=== PATIENT | female | born 1950 | race American Indian/Alaskan Native ===

== ENCOUNTER 2016-12-29 17:11 | Emergency (ER) | payer MEDICARE ==
[2016-12-29 18:22] LABS: Urine Drugs of Abuse Note Disclamer
[2016-12-29 18:36] LABS: Bacteria,Urine 1+ /HPF (Negative); Bilirubin,Urine NEG (Negative); Blood,Urine NEG (Negative); Ketones,Urine NEG (Negative); Leukocyte Esterase,Urine SM (Negative); Mucus,Urine FEW /HPF; Nitrite,Urine POS (Negative); Urobilinogen,Urine < 2.0 mg/dL (<2.0)
[2016-12-29 19:10] LABS: Basophils % (Auto) 0.6 % (0.0-1.8); Eosinophils % (Auto) 0.6 % (0.0-4.3); Hematocrit 40.2 % (30.3-42.9); Hemoglobin 13.4 gm/dl (10.1-14.3); Mean Corpuscular HGB Conc 33 % (30-34); Mean Corpuscular Hemoglobin 30 pg (28-32); Mean Corpuscular Volume 90 fl (79-97); Platelet Count 279 K/mm3 (140-440); Red Blood Count 4.48 M/mm3 (3.65-5.03); Red Cell Distribution Width 14.6 % (13.2-15.2); White Blood Count 10.8 K/mm3 (4.5-11.0)
[2016-12-29 19:23] LABS: Anion Gap 17 mmol/L; Blood Urea Nitrogen 20 mg/dL (7-17); Calcium 9.4 mg/dL (8.4-10.2); Carbon Dioxide 23 mmol/L (22-30); Chloride 103.9 mmol/L (98-107); Glucose 85 mg/dL (65-100); Sodium 140 mmol/L (137-145)
--- NOTE | 2016-12-29 20:07 | Emergency Department Report ---
HPI - General Chief Complaint: Psych Time Seen by Provider: 12/29/16 19:38 - HPI HPI: This is a 66-year-old Afro-[place] female presents to the emergency department for a mental health evaluation. The patient says that she came because she is "trying to do the right thing." The patient admits to depression and says it is "more than that." The patient says she feels very tired and came here in order to try not to "kill myself." The patient has a history of depression and paranoid schizophrenia. She is usually on psychiatric medications but has not taken them in a few days because she says she is "afraid she might take them all rate" patient get some psychiatric care at a behavioral Center on [place] and saw a nurse practitioner on the . It is unknown whether she explained the magnitude of her depression and/or thoughts at that time. She denies any auditory or visual hallucinations or any homicidal ideations. ED Past Medical Hx - Past Medical History Previous Medical History?: Yes Hx Hypertension: Yes Hx Heart Attack/AMI: No Hx Congestive Heart Failure: No Hx Diabetes: Yes Hx Deep Vein Thrombosis: No Hx Liver Disease: No Hx Renal Disease: Yes (history of renal insufficiency) Hx Arthritis: No Hx Kidney Stones: No Hx Psychiatric Treatment: Yes (depression paranoid schizophrenia) Additional medical history: HIGH CHOLESTEROL - Surgical History Past Surgical History?: Yes Hx Coronary Stent: No Hx Open Heart Surgery: No Hx Pacemaker: No Hx Internal Defibrillator: No Hx Cholecystectomy: Yes Hx Appendectomy: No Hx Breast Surgery: No Additional Surgical History: HYSTERECTOMY. BILATERAL FOOT SURGERY - Social History Smoking Status: Former Smoker Substance Use Type: Alcohol, Prescribed - Medications Home Medications: Home Medications Medication Instructions Recorded Confirmed Last Taken Type Citalopram [Celexa] 20 mg PO DAILY 01/13/14 12/29/16 Unknown History [place]-3 Fatty Acids [[place]-3] 1 tab PO DAILY 01/13/14 12/29/16 Unknown History Rosuvastatin (Nf) [Crestor] 20 mg PO DAILY 01/13/14 12/29/16 Unknown History Furosemide [Lasix] 20 mg PO QDAY #30 tablet 05/14/14 12/29/16 Unknown Rx Gabapentin [Neurontin] 800 mg PO TID #30 05/14/14 12/29/16 Unknown Rx Lisinopril [Zestril TAB] 10 mg PO QDAY #30 tablet 05/14/14 12/29/16 Unknown Rx HYDROcodone/APAP 5-325 [[place] 1 each PO Q6HR PRN #30 tablet 04/21/15 12/29/16 Unknown Rx 5-325 mg TAB] Insulin Glargine,Hum.rec.anlog 15 unit SQ TID 04/21/15 12/29/16 Unknown History [Lantus] Citalopram [Celexa] 20 mg PO DAILY #30 tablet 03/30/16 12/29/16 Unknown Rx Nitrofurantoin [place]/M-Cryst 100 mg PO Q12HR #10 capsule 12/29/16 Unknown Rx [Macrobid CAP] ED Review of Systems ROS: Stated complaint: FEELING TIRED Other details as noted in HPI Comment: All other systems reviewed and negative Constitutional: denies: chills, fever Eyes: denies: eye pain, eye discharge, vision change ENT: denies: ear pain, throat pain Respiratory: denies: cough, shortness of breath, wheezing Cardiovascular: denies: chest pain, palpitations Gastrointestinal: denies: abdominal pain, nausea, diarrhea Genitourinary: denies: urgency, dysuria, discharge Musculoskeletal: denies: back pain, joint swelling, arthralgia Skin: denies: rash, lesions Neurological: denies: headache, weakness, paresthesias Psychiatric: depression, suicidal thoughts. denies: auditory hallucinations, visual hallucinations, homicidal thoughts Physical Exam - Physical Exam Vital Signs: Vital Signs 12/29/16 17:52 Temperature 98.9 F Pulse Rate 66 Respiratory 20 Rate Blood Pressure 164/66 O2 Sat by Pulse 100 Oximetry Physical Exam: GENERAL: The patient is well-developed well-nourished. HEENT: Normocephalic. Atraumatic. Extraocular motions are intact. Patient has moist mucous membranes. Pupils equal reactive to light bilaterally. NECK: Supple. Trachea is midline. CHEST/LUNGS: Clear to auscultation. There is no respiratory distress noted. HEART/CARDIOVASCULAR: Regular. There is no tachycardia. There is no gallop rub or murmur. ABDOMEN: Abdomen is soft, nontender. Patient has normal bowel sounds. There is no abdominal distention. SKIN: Skin is warm and dry. NEURO: The patient is awake, alert, and oriented. The patient is cooperative. The patient has no focal neurologic deficits. The patient has normal speech. MUSCULOSKELETAL: There is no tenderness or deformity. There is no limitation range of motion. There is no evidence of acute injury. PSYCH: Patient appears depressed. Flat affect. ED Course Vital Signs 12/29/16 17:52 Temperature 98.9 F Pulse Rate 66 Respiratory 20 Rate Blood Pressure 164/66 O2 Sat by Pulse 100 Oximetry ED Medical Decision Making - Lab Data Result diagrams: 12/29/16 18:52 12/29/16 18:52 - Medical Decision Making 66-year-old female presents the emergency department with depression and suicidal ideations. It sounds like her plan would be anything that would end her life but she specifically mentions overdosing on her medications and uses as a reason as to why she has not taken her psych meds recently. Otherwise the patient's vital signs are stable. Patient's labs are mostly unremarkable other than a mild urinary tract infection. She will be started on Macrobid. Patient is medically cleared for psychiatric placement. She has been made a 1013 secondary to her significant depression and suicidal ideations. - Differential Diagnosis schizophrenia, bipolar, depression, schizoaffective, substance abuse Critical Care Time: No Critical care attestation.: If time is entered above; I have spent that time in minutes in the direct care of this critically ill patient, excluding procedure time. ED Disposition Clinical Impression: Suicidal ideations Depression Qualifiers: Depression Type: unspecified Qualified Code(s): F32.9 - Major depressive disorder, single episode, unspecified HTN (hypertension) Qualifiers: Hypertension type: essential hypertension Qualified Code(s): I10 - Essential ( primary) hypertension UTI (urinary tract infection) Qualifiers: Urinary tract infection type: acute cystitis Hematuria presence: without hematuria Qualified Code(s): N30.00 - Acute cystitis without hematuria Disposition: DC/TX PSY HOSP/PSY UNIT Is pt being admited?: No Condition: Stable Instructions: Hypertension (ED) Prescriptions: Nitrofurantoin [place]/M-Cryst [Macrobid CAP] 100 mg PO Q12HR #10 capsule Referrals: PRIMARY CARE, [Primary Care Provider] - 3-5 Days Time of Disposition: 20:46
[2016-12-29] MEDS: MACROBID PO SCH (22:00)
[2016-12-30] MEDS ORDERED: celeXA PO SCH (10:00)
[2016-12-30] MEDS ORDERED: ZESTRIL PO SCH (10:00)
[2016-12-30] MEDS: MACROBID PO SCH ×2 (10:02→22:14)
--- NOTE | 2016-12-30 12:27 | Consultation ---
History of Present Illness - Reason for Consult Consult date: 12/30/16 Reason for consult: psychiatric evaluation - Chief Complaint Chief complaint: "I can't take it anymore" 66 year old black female seen for psychiatric evaluation in the emergency department. She reports suicidal ideation with a plan to overdose and does not want to be a burden to her family. She did not carry it out for fear of hurting the family she has left to support her. She discussed the circumstances leading to worsening of depression. She had Multiple losses of relationship with her children and other family members. Primary symptoms are isolation, crying spells , anhedonia, lack of motivation, and hopelessness. She is unsure whether she was diagnosed with bipolar disorder. Previous history of AVH, none currently No history of SA Receives treatment for mental health but is a poor historian No alcohol or drug use reported Mental status exam: Gen. appearance: hospital attire, unable to assess gait, has indwelling cody catheter Orientation: Oriented to person, place, time, situation Psychomotor activity: retarded Involuntary movements: None Speech: Regular rate and rhythm Attitude and behavior: cooperative Mood: Depressed, dysphoric Affect: Congruent Thought process: logical Thought content: suicidal ideation with plan to overdose. No HI. worry Perceptions: no avh Memory: unable to complete immediate/recent/remote memory screening Insight: limited Judgment: limited Intelligence: Appears average Ability to perform ADLs: limited Medications and Allergies Allergies Allergy/AdvReac Type Severity Reaction Status Date / Time No Known Allergies Allergy Unverified 01/13/14 19:32 Home Medications Medication Instructions Recorded Confirmed Last Taken Type Citalopram [Celexa] 20 mg PO DAILY 01/13/14 12/29/16 Unknown History [place]-3 Fatty Acids [[place]-3] 1 tab PO DAILY 01/13/14 12/29/16 Unknown History Rosuvastatin (Nf) [Crestor] 20 mg PO DAILY 01/13/14 12/29/16 Unknown History Furosemide [Lasix] 20 mg PO QDAY #30 tablet 05/14/14 12/29/16 Unknown Rx Gabapentin [Neurontin] 800 mg PO TID #30 05/14/14 12/29/16 Unknown Rx Lisinopril [Zestril TAB] 10 mg PO QDAY #30 tablet 05/14/14 12/29/16 Unknown Rx HYDROcodone/APAP 5-325 [[place] 1 each PO Q6HR PRN #30 tablet 04/21/15 12/29/16 Unknown Rx 5-325 mg TAB] Insulin Glargine,Hum.rec.anlog 15 unit SQ TID 04/21/15 12/29/16 Unknown History [Lantus] Citalopram [Celexa] 20 mg PO DAILY #30 tablet 03/30/16 12/29/16 Unknown Rx Nitrofurantoin [place]/M-Cryst 100 mg PO Q12HR #10 capsule 12/29/16 Unknown Rx [Macrobid CAP] Active Meds: Active Medications Citalopram Hydrobromide (Celexa) 20 mg PO DAILY [facility] Last Admin: 12/30/16 10:01 Dose: 20 mg Lisinopril (Zestril) 10 mg PO QDAY [facility] Last Admin: 12/30/16 10:02 Dose: 10 mg Nitrofurantoin Macrocrystals (Macrobid) 100 mg PO BID [facility] Last Admin: 12/30/16 10:02 Dose: 100 mg Mental Status Exam - Vital signs Last Vital Signs Temp 98.4 F 12/30/16 08:25 Pulse 64 12/30/16 10:02 Resp 16 12/30/16 08:25 BP 158/82 12/30/16 10:02 Pulse Ox 100 12/30/16 08:25 Results Result Diagrams: 12/29/16 18:52 12/29/16 18:52 Abnormal lab results 12/29/16 12/29/16 12/29/16 Range/Units 18:01 18:52 18:52 Seg Neutrophils % 72.2 H (40.0-70.0) % Seg Neutrophils # 7.8 H (1.8-7.7) K/mm3 BUN 20 H (7-17) mg/dL Urine WBC (Auto) 25.0 H (0.0-6.0) /HPF All other labs normal. Assessment and Plan Assessment and plan: Impression: 66 year old with history of depressive episodes. Family stressors and chronic medical problems are exacerbating her symptoms. MDD, recurrent, severe, without psychotic features r/o bipolar Plan: 1013 and transfer to inpatient psychiatric when medically cleared. Restart celexa 20mg daily for depressive symptoms - Psychiatric problem (1) MDD (major depressive disorder), recurrent episode Current Visit: Yes Status: Acute Qualifiers: Major depression episode severity: M Psychotic features: P
[2016-12-31 00:49] VITALS: BP 156/73
== END 2016-12-31 06:12 ==
LOC: ED 17:11 → EEVIPCON 17:11 → ED 12-31 06:12
DX: R45.851 Suicidal ideations (principal); F32.9 Major depressive disorder, single episode, unspecified; I10 Essential (primary) hypertension; N30.00 Acute cystitis without hematuria; E11.9 Type 2 diabetes mellitus without complications; E78.00 Pure hypercholesterolemia, unspecified; F20.0 Paranoid schizophrenia; Z90.49 Acquired absence of other specified parts of digestive tract; Z90.710 Acquired absence of both cervix and uterus; Z87.891 Personal history of nicotine dependence; Z79.4 Long term (current) use of insulin
CPT/HCPCS: 36415; 80048; 80307; 81001; 82962; 85025; 99285; G0480; 80320

== ENCOUNTER 2017-05-03 09:23 | Emergency (ER) | payer MEDICARE ==
--- NOTE | 2017-05-03 10:06 | Emergency Department Report ---
HPI - General Chief Complaint: Urogenital-Female Time Seen by Provider: 05/03/17 10:00 - HPI HPI: PATIENT STATES THAT FOR THE PAST THREE DAYS SHE FEELS LIKE SHE IS LOSING HER MIND, C/O BURNING INSIDE, FEELING LIKE SOMETHING IS CRAWLING IN HER SKIN, FEELING LIKE SHE IS GOING CRAZY. PATIENT ALSO STATES THAT SHE IS HEARING VOICES AND SEEING THINGS THAT ARE NOT THERE. ED Past Medical Hx - Past Medical History Previous Medical History?: Yes Hx Hypertension: Yes Hx Heart Attack/AMI: No Hx Congestive Heart Failure: No Hx Diabetes: Yes Hx Deep Vein Thrombosis: No Hx Liver Disease: No Hx Renal Disease: Yes (history of renal insufficiency) Hx Arthritis: No Hx Kidney Stones: No Hx Psychiatric Treatment: Yes (depression paranoid schizophrenia) Additional medical history: HIGH CHOLESTEROL - Surgical History Past Surgical History?: Yes Hx Coronary Stent: No Hx Open Heart Surgery: No Hx Pacemaker: No Hx Internal Defibrillator: No Hx Cholecystectomy: Yes Hx Appendectomy: No Hx Breast Surgery: No Additional Surgical History: HYSTERECTOMY. BILATERAL FOOT SURGERY - Social History Smoking Status: Never Smoker Substance Use Type: None - Medications Home Medications: Home Medications Medication Instructions Recorded Confirmed Last Taken Type [place]-3 Fatty Acids [[place]-3] 1 tab PO DAILY 01/13/14 05/03/17 Unknown History Rosuvastatin (Nf) [Crestor] 20 mg PO DAILY 01/13/14 05/03/17 Unknown History Furosemide [Lasix] 20 mg PO QDAY #30 tablet 05/14/14 05/03/17 Unknown Rx Gabapentin [Neurontin] 800 mg PO TID #30 05/14/14 05/03/17 Unknown Rx Lisinopril [Zestril TAB] 10 mg PO QDAY #30 tablet 05/14/14 05/03/17 Unknown Rx Insulin Glargine,Hum.rec.anlog 15 unit SQ TID 04/21/15 05/03/17 Unknown History [Lantus] Citalopram [Celexa] 20 mg PO DAILY #30 tablet 03/30/16 05/03/17 Unknown Rx Nitrofurantoin [place]/M-Cryst 100 mg PO Q12HR #10 capsule 12/29/16 05/03/17 Unknown Rx [Macrobid CAP] Cephalexin [Keflex] 500 mg PO Q12HR #14 cap 08/18/17 Unknown Rx Fluconazole [Diflucan TAB] 150 mg PO ONCE #2 tablet 05/03/17 Unknown Rx ED Review of Systems ROS: Stated complaint: BODY FEELS LIKE IT ON FIRE Other details as noted in HPI Comment: All other systems reviewed and negative Gastrointestinal: as per HPI Psychiatric: auditory hallucinations, visual hallucinations Physical Exam - Physical Exam Vital Signs: Vital Signs 05/03/17 09:36 Temperature 98.7 F Pulse Rate 60 Blood Pressure 159/69 O2 Sat by Pulse 100 Oximetry Physical Exam: gen: alert and oriented x3, heent: perrla, eomi cv: rrr, nl s1, s2 lungs: cta bila abd: s,nt,nd, pos bs ext: no edema gu: pt refused neuro: no deficits psych: DEPRESSED MOOD, ANXIOUS, skin: normal turgor ED Course Vital Signs 05/03/17 09:36 Temperature 98.7 F Pulse Rate 60 Blood Pressure 159/69 O2 Sat by Pulse 100 Oximetry - Reevaluation(s) Reevaluation #1: 05/03/17 15:10 PATIENT WAS SEEN BY PSYCHIATRY AND D/C WAS RECOMMENDED. ED Medical Decision Making - Lab Data Result diagrams: 05/03/17 09:58 05/03/17 09:55 Critical care attestation.: If time is entered above; I have spent that time in minutes in the direct care of this critically ill patient, excluding procedure time. ED Disposition Clinical Impression: Candidiasis of genitalia in female, Anxiety UTI (urinary tract infection) Qualifiers: Indwelling urinary catheter type: unspecified Encounter type: initial encounter Disposition: DC- TO HOME OR SELFCARE Is pt being admited?: No Does the pt Need Aspirin: No Condition: Stable Prescriptions: Cephalexin [Keflex] 500 mg PO Q12HR #14 cap Fluconazole [Diflucan TAB] 150 mg PO ONCE #2 tablet Referrals: ANTONIO OROZCO MD [Primary Care Provider] - 3-5 Days
[2017-05-03 10:07] LABS: Bacteria,Urine 1+ /HPF (Negative); Bilirubin,Urine NEG (Negative); Blood,Urine NEG (Negative); Ketones,Urine NEG (Negative); Leukocyte Esterase,Urine MOD (Negative); Nitrite,Urine NEG (Negative); Protein,Urine <15 mg/dL mg/dL (Negative); Urobilinogen,Urine < 2.0 mg/dL (<2.0)
[2017-05-03 10:20] LABS: Basophils % (Auto) 0.6 % (0.0-1.8); Eosinophils % (Auto) 1.3 % (0.0-4.3); Hematocrit 33.8 % (30.3-42.9); Hemoglobin 11.5 gm/dl (10.1-14.3); Mean Corpuscular HGB Conc 34 % (30-34); Mean Corpuscular Hemoglobin 31 pg (28-32); Mean Corpuscular Volume 91 fl (79-97); Platelet Count 245 K/mm3 (140-440); Red Blood Count 3.71 M/mm3 (3.65-5.03); Red Cell Distribution Width 14.1 % (13.2-15.2); White Blood Count 8.5 K/mm3 (4.5-11.0)
[2017-05-03 10:35] LABS: Albumin 4.1 g/dL (3.9-5); BUN/Creatinine Ratio 13.33; Bilirubin,Total 0.3 mg/dL (0.1-1.2); Calcium 8.8 mg/dL (8.4-10.2); Total Protein 7.4 g/dL (6.3-8.2)
[2017-05-03 10:36] LABS: Albumin/Globulin Ratio 1.2 %; Chloride 103.6 mmol/L (98-107); Potassium 4.2 mmol/L (3.6-5.0)
--- NOTE | 2017-05-03 10:38 | Cat Scan Report ---
CT HEAD WITHOUT CONTRAST INDICATION: Altered mental status. COMPARISON: None similar. FINDINGS: Noncontrast head CT demonstrates normal ventricles and sulci without acute or recent infarct, hemorrhage, mass effect or midline shift. No abnormal extra-axial fluid collections. Slight periventricular hypodensities. Posterior fossa structures and basilar cisterns appear within normal limits. Slight nasal septal deviation. Clear paranasal sinuses and mastoid air cells. Mild atherosclerotic ICA calcifications. Intact calvarium. Normal overlying scalp soft tissues. Few radiopaque dental material anteriorly and numerous missing teeth incidentally noted. CONCLUSION: No acute intracranial CT abnormality, as described. Thank you for the opportunity to participate in this patient's care.
[2017-05-03] MEDS ORDERED: ATIVAN ONE (12:31)
[2017-05-03] MEDS ORDERED: ATIVAN PO ONE (12:35)
[2017-05-03 16:35] VITALS: BP 153/62
== END 2017-05-03 16:34 | disposition home or self-care (01) ==
LOC: ED 09:23
DX: B37.9 Candidiasis, unspecified (principal); N39.0 Urinary tract infection, site not specified; I10 Essential (primary) hypertension; E11.9 Type 2 diabetes mellitus without complications; F20.9 Schizophrenia, unspecified; E78.00 Pure hypercholesterolemia, unspecified; Z79.4 Long term (current) use of insulin
CPT/HCPCS: 36415; 70450; 80053; 81001; 83690; 85025; 99284; G0480; 80320

== ENCOUNTER 2017-06-03 09:28 | Emergency (ER) | payer MEDICARE ==
[2017-06-03 10:22] LABS: Basophils % (Auto) 0.5 % (0.0-1.8); Eosinophils % (Auto) 0.3 % (0.0-4.3); Hematocrit 35.4 % (30.3-42.9); Hemoglobin 11.9 gm/dl (10.1-14.3); Mean Corpuscular HGB Conc 34 % (30-34); Mean Corpuscular Hemoglobin 30 pg (28-32); Mean Corpuscular Volume 90 fl (79-97); Platelet Count 244 K/mm3 (140-440); Red Blood Count 3.92 M/mm3 (3.65-5.03); Red Cell Distribution Width 14.1 % (13.2-15.2); White Blood Count 6.8 K/mm3 (4.5-11.0)
--- NOTE | 2017-06-03 10:26 | Emergency Department Report ---
HPI - General Chief Complaint: Overdose Time Seen by Provider: 06/03/17 10:16 - HPI HPI: Room 1 The patient is 67-year-old female presenting with chief complaint suicidal ideation. The patient states last night and sometime this morning before sunrise she took a handful of Aleve and Advil PM. Patient is to suicidal ideation. Patient denies any other coingestants. The patient states she just does not want to be here. Location: Mental state Duration: [see above] Quality: Suicidal Severity: Severe Modifying factors: [see above] Context: [see above] Mode of transportation: [not driving] ED Past Medical Hx - Past Medical History Previous Medical History?: Yes Hx Hypertension: Yes Hx Diabetes: Yes Hx Renal Disease: Yes (history of renal insufficiency) Hx Psychiatric Treatment: Yes (depression paranoid schizophrenia) Additional medical history: HIGH CHOLESTEROL - Surgical History Hx Cholecystectomy: Yes Additional Surgical History: HYSTERECTOMY. BILATERAL FOOT SURGERY - Family History Family history: no significant - Social History Smoking Status: Never Smoker Substance Use Type: None - Medications Home Medications: Home Medications Medication Instructions Recorded Confirmed Last Taken Type [place]-3 Fatty Acids [[place]-3] 1 tab PO DAILY 01/13/14 05/03/17 Unknown History Rosuvastatin (Nf) [Crestor] 20 mg PO DAILY 01/13/14 05/03/17 Unknown History Furosemide [Lasix] 20 mg PO QDAY #30 tablet 05/14/14 05/03/17 Unknown Rx Gabapentin [Neurontin] 800 mg PO TID #30 05/14/14 05/03/17 Unknown Rx Lisinopril [Zestril TAB] 10 mg PO QDAY #30 tablet 05/14/14 05/03/17 Unknown Rx Insulin Glargine,Hum.rec.anlog 15 unit SQ TID 04/21/15 05/03/17 Unknown History [Lantus] Citalopram [Celexa] 20 mg PO DAILY #30 tablet 03/30/16 05/03/17 Unknown Rx Nitrofurantoin [place]/M-Cryst 100 mg PO Q12HR #10 capsule 12/29/16 05/03/17 Unknown Rx [Macrobid CAP] Cephalexin [Keflex] 500 mg PO Q12HR #14 cap 05/03/17 Unknown Rx Fluconazole [Diflucan TAB] 150 mg PO ONCE #2 tablet 05/03/17 Unknown Rx ED Review of Systems ROS: Stated complaint: SUICIDE ATTEMPT Other details as noted in HPI Comment: All other systems reviewed and negative Constitutional: denies: chills, fever Eyes: denies: eye pain, eye discharge, vision change ENT: denies: ear pain, throat pain Respiratory: denies: cough, shortness of breath, wheezing Cardiovascular: denies: chest pain, palpitations Endocrine: no symptoms reported Gastrointestinal: denies: abdominal pain, nausea, diarrhea Genitourinary: denies: urgency, dysuria, discharge Musculoskeletal: denies: back pain, joint swelling, arthralgia Skin: denies: rash, lesions Neurological: denies: headache, weakness, paresthesias Psychiatric: suicidal thoughts Hematological/Lymphatic: denies: easy bleeding, easy bruising Physical Exam - Physical Exam Vital Signs: Vital Signs 06/03/17 06/03/17 06/03/17 09:36 10:07 10:08 Pulse Rate 61 56 L 56 L Respiratory 17 19 19 Rate Blood Pressure 174/78 O2 Sat by Pulse 100 100 100 Oximetry 06/03/17 06/03/17 06/03/17 10:09 10:11 10:13 Pulse Rate 56 L 56 L 56 L Respiratory 21 18 19 Rate Blood Pressure O2 Sat by Pulse 100 100 100 Oximetry 06/03/17 10:15 Pulse Rate 54 L Respiratory 18 Rate Blood Pressure 164/68 O2 Sat by Pulse 100 Oximetry Physical Exam: GENERAL: The patient is well-developed well-nourished female lying on stretcher not appearing to be in acute distress. [] HEENT: Normocephalic. Atraumatic. Extraocular motions are intact. Patient has moist mucous membranes. NECK: Supple. Trachea midline CHEST/LUNGS: Clear to auscultation. There is no respiratory distress noted. HEART/CARDIOVASCULAR: Regular. There is no tachycardia. There is no gallop rub or murmur. ABDOMEN: Abdomen is soft, nontender. Patient has normal bowel sounds. There is no abdominal distention. SKIN: There is no rash. There is no edema. There is no diaphoresis. NEURO: The patient is awake, alert, and oriented. The patient is cooperative. The patient has normal speech MUSCULOSKELETAL: There is no evidence of acute injury. ED Course Vital Signs 06/03/17 06/03/17 06/03/17 09:36 10:07 10:08 Pulse Rate 61 56 L 56 L Respiratory 17 19 19 Rate Blood Pressure 174/78 O2 Sat by Pulse 100 100 100 Oximetry 06/03/17 06/03/17 06/03/17 10:09 10:11 10:13 Pulse Rate 56 L 56 L 56 L Respiratory 21 18 19 Rate Blood Pressure O2 Sat by Pulse 100 100 100 Oximetry 06/03/17 10:15 Pulse Rate 54 L Respiratory 18 Rate Blood Pressure 164/68 O2 Sat by Pulse 100 Oximetry - Consultations Consultation #1: 06/03/17 10:25 Poison control called 06/03/17 10:33 Case discussed with Christopher with poison control. Recommend symptomatic and supportive care. States with diphenhydramine may expect elevated heart rate, elevated blood pressure, agitation or drowsiness. States agitation may be treated with benzodiazepines as needed. Newly and Advil may cause GI upset. Recommends observing at least 6 hours. 06/03/17 12:48 ED Medical Decision Making - Lab Data Result diagrams: 06/03/17 10:09 06/03/17 10:09 Laboratory Tests 06/03/17 06/03/17 06/03/17 10:09 10:09 10:09 WBC RBC Hgb Hct MCV MCH MCHC RDW Plt Count Lymph % (Auto) [place] % (Auto) Eos % (Auto) Baso % (Auto) Lymph # [place] # Eos # Baso # Seg Neutrophils % Seg Neutrophils # PT INR APTT Sodium 140 Potassium 3.6 Chloride 103.4 Carbon Dioxide 24 Anion Gap 16 BUN 12 Creatinine 0.9 Estimated GFR > 60 BUN/Creatinine Ratio 13.33 Glucose 137 H Calcium 8.7 Total Bilirubin Direct Bilirubin Indirect Bilirubin AST ALT Alkaline Phosphatase Total Protein Albumin Albumin/Globulin Ratio Salicylates Acetaminophen < 15.0 Plasma/Serum Alcohol < 0.01 06/03/17 06/03/17 06/03/17 10:09 10:09 10:09 WBC 6.8 RBC 3.92 Hgb 11.9 Hct 35.4 MCV 90 MCH 30 MCHC 34 RDW 14.1 Plt Count 244 Lymph % (Auto) 17.1 [place] % (Auto) 3.4 Eos % (Auto) 0.3 Baso % (Auto) 0.5 Lymph # 1.2 [place] # 0.2 Eos # 0.0 Baso # 0.0 Seg Neutrophils % 78.7 H Seg Neutrophils # 5.4 PT 13.3 INR 0.96 APTT 27.6 Sodium Potassium Chloride Carbon Dioxide Anion Gap BUN Creatinine Estimated GFR BUN/Creatinine Ratio Glucose Calcium Total Bilirubin Direct Bilirubin Indirect Bilirubin AST ALT Alkaline Phosphatase Total Protein Albumin Albumin/Globulin Ratio Salicylates < 0.3 L Acetaminophen Plasma/Serum Alcohol 06/03/17 10:09 WBC RBC Hgb Hct MCV MCH MCHC RDW Plt Count Lymph % (Auto) [place] % (Auto) Eos % (Auto) Baso % (Auto) Lymph # [place] # Eos # Baso # Seg Neutrophils % Seg Neutrophils # PT INR APTT Sodium Potassium Chloride Carbon Dioxide Anion Gap BUN Creatinine Estimated GFR BUN/Creatinine Ratio Glucose Calcium Total Bilirubin 0.20 Direct Bilirubin < 0.2 Indirect Bilirubin 0.0 AST 16 ALT 9 Alkaline Phosphatase 64 Total Protein 7.2 Albumin 4.0 Albumin/Globulin Ratio 1.3 Salicylates Acetaminophen Plasma/Serum Alcohol - EKG Data -: EKG Interpreted by Id EKG shows normal: sinus rhythm Rate: bradycardia (57 bpm) - EKG Data When compared to previous EKG there are: previous EKG unavailable - Differential Diagnosis suicidal ideation, polysubstance overdose Critical care attestation.: If time is entered above; I have spent that time in minutes in the direct care of this critically ill patient, excluding procedure time. ED Disposition Clinical Impression: Suicidal ideation, Intentional drug overdose Disposition: DC/TX-65 PSY HOSP/PSY UNIT Is pt being admited?: No Does the pt Need Aspirin: No Condition: Serious Referrals: PRIMARY CARE, [Primary Care Provider] - 3-5 Days Time of Disposition: 14:05 (awaiting acceptance)
[2017-06-03 10:34] LABS: INR 0.96 (0.87-1.13)
[2017-06-03 10:35] LABS: Partial Thromboplastin Time 27.6 Sec. (24.2-36.6)
[2017-06-03 11:16] LABS: Anion Gap 16 mmol/L; BUN/Creatinine Ratio 13.33; Blood Urea Nitrogen 12 mg/dL (7-17); Calcium 8.7 mg/dL (8.4-10.2); Carbon Dioxide 24 mmol/L (22-30); Chloride 103.4 mmol/L (98-107); Glucose 137 mg/dL (65-100); Potassium 3.6 mmol/L (3.6-5.0); Sodium 140 mmol/L (137-145)
[2017-06-03 11:42] LABS: Alanine Aminotransferase 9 units/L (7-56); Albumin/Globulin Ratio 1.3 %; Alkaline Phosphatase 64 units/L (35-129); Total Protein 7.2 g/dL (6.3-8.2)
[2017-06-03 11:43] LABS: Bilirubin,Direct < 0.2 mg/dL (0-0.2)
[2017-06-04 05:37] LABS: Urine Drugs of Abuse Note Disclamer
[2017-06-04 05:51] LABS: Bacteria,Urine 2+ /HPF (Negative); Bilirubin,Urine NEG (Negative); Blood,Urine NEG (Negative); Ketones,Urine TR mg/dL (Negative); Leukocyte Esterase,Urine LG (Negative); Mucus,Urine 1+ /HPF; Nitrite,Urine POS (Negative); Urobilinogen,Urine < 2.0 mg/dL (<2.0)
[2017-06-04] MEDS ORDERED: LASIX PO SCH (07:00)
[2017-06-04] MEDS ORDERED: ZESTRIL PO SCH (07:00)
[2017-06-04] MEDS: NEURONTIN PO SCH ×3 (09:09→20:21)
[2017-06-04] MEDS: NOVOLOG SUB-Q SCH ×3 (09:09→19:47)
[2017-06-04] MEDS: LEVEMIR SUB-Q SCH (22:16)
[2017-06-05] MEDS: NOVOLOG SUB-Q SCH ×3 (08:50→19:01)
[2017-06-05] MEDS: NEURONTIN PO SCH ×3 (08:58→21:17)
[2017-06-05] MEDS: LEVEMIR SUB-Q SCH (22:00)
[2017-06-06] MEDS: NOVOLOG SUB-Q SCH ×3 (08:06→19:37)
[2017-06-06] MEDS: NEURONTIN PO SCH ×3 (08:29→20:11)
--- NOTE | 2017-06-06 12:34 | Consultation ---
History of Present Illness - Reason for Consult Consult date: 06/06/17 Reason for consult: Mental Health Evaluation Requesting physician: KRISTOPHER AMOS - Chief Complaint Chief complaint: "What is the problem" - History of Present Psychiatric Illness The patient is 67-year-old female presenting with chief complaint suicidal ideation. The patient states last night and sometime this morning before sunrise she took a handful of Aleve and Advil PM (overdose). Today patient is calm during the assessment. She stated that she didn't take any pills prior to her admission to [facility] to kill herself. She stated that her issue is her ability to "pee" and move her bowels. Patient currently has a cody cath. She could not tell me why she has a cody, but stated that she has a implant in her "brain" that allows her to use the "bathroom." Per collateral from her daughter Tasha Gaston, her mother did not take any pills to try to kill herself prior to her admission to [facility]. She stated that her mother lives alone and need assistance at home (nursing care). So she decided to call EMS and tell them she took pills to get some help (patient never overdosed). Her daughter stated that her mom was approved for nursing/home care. She stated that her mom has a implant in her back not in her brain to stimulate her bowels and bladder. She stated that her mom was dx with early on stage dementia earlier this year. She denies a mental health dx for her mother. The patient was able to ID the current and past [place] president. She was able to tell me and recall 1/3 numbers (3, 8, 19 ) within 5 mins. She denies SI/HI's and AVH's. She denies a poor appetite and sleep disturbances. She denies recreational drug use and alcohol consumption ( etoh). The patient stated getting help around her house can be stressful. Medications and Allergies Allergies Allergy/AdvReac Type Severity Reaction Status Date / Time Iodinated Contrast Media - Allergy Anaphylaxis Verified 06/03/17 09:48 IV Dye Home Medications Medication Instructions Recorded Confirmed Last Taken Type [place]-3 Fatty Acids [[place]-3] 1 tab PO DAILY 01/13/14 06/03/17 Unknown History Rosuvastatin (Nf) [Crestor] 20 mg PO DAILY 01/13/14 06/03/17 Unknown History Furosemide [Lasix] 20 mg PO QDAY #30 tablet 05/14/14 06/03/17 Unknown Rx Gabapentin [Neurontin] 800 mg PO TID #30 05/14/14 06/03/17 Unknown Rx Lisinopril [Zestril TAB] 10 mg PO QDAY #30 tablet 05/14/14 06/03/17 Unknown Rx Insulin Glargine,Hum.rec.anlog 12 unit SQ QHS 04/21/15 06/03/17 Unknown History [Lantus] Citalopram [Celexa] 20 mg PO DAILY #30 tablet 03/30/16 06/03/17 Unknown Rx Nitrofurantoin [place]/M-Cryst 100 mg PO Q12HR #10 capsule 12/29/16 06/03/17 Unknown Rx [Macrobid CAP] Fluconazole [Diflucan TAB] 150 mg PO ONCE #2 tablet 05/03/17 06/03/17 Unknown Rx Insulin Lispro [HumaLOG VIAL] 0 units SQ AC 06/03/17 06/03/17 Unknown History Active Meds: Active Medications Atorvastatin Calcium (Lipitor) 40 mg PO QHS [facility] Last Admin: 06/05/17 22:00 Dose: 40 mg Furosemide (Lasix) 20 mg PO ONCE ERIBERTO Gabapentin (Neurontin) 300 mg PO TID [facility] Last Admin: 06/06/17 08:29 Dose: 300 mg Insulin Aspart (Novolog) 4 units SUB-Q TIDAC [facility] Last Admin: 06/06/17 08:06 Dose: Not Given Insulin Detemir (Levemir) 12 units SUB-Q QHS [facility] Last Admin: 06/05/17 22:00 Dose: 12 units Lisinopril (Zestril) 10 mg PO ONCE [facility] Past psychiatric history - Past Medical History Past Medical History: hypertension, other (renal insufficiency) Past Surgical History: cholecystectomy - past Psychiatric treatment and history Psych: Schizophrenia psychiatric treatment history: Per ER note, patient has hx of schizophrenia. Mental Status Exam - Vital signs Last Vital Signs Temp 97.6 F 06/05/17 20:10 Pulse 57 L 06/05/17 20:10 Resp 16 06/05/17 20:10 BP 140/57 06/05/17 20:10 Pulse Ox 100 06/05/17 20:10 - Exam Narrative exam: ROS: (-) psychosis MSE: Appearance: calm, cooperative Behavior: regular eye contact Speech: regular rate and tone Mood: "I'm well" Affect: agitated Thought Process: circumstantial Thought Content: denies SI/HI's and AVH's Motor Activity: sitting up in bed Cognition: A/O x3 Insight: variable Judgment: variable Results Result Diagrams: 06/03/17 10:09 06/03/17 10:09 Abnormal lab results 06/05/17 Range/Units 19:09 POC Glucose 106 H (70-105) All other labs normal. Assessment and Plan Assessment and plan: Impression: Historical Dx: Early on stage dementia. Acute Stress Reaction. Today patient is calm during the assessment. Patient no threat to self. Recommendation/Plan: Rescind 1013. Patient can be picked up by her daughter. Per the patient's daughter, nursing/home care has been arranged.
--- NOTE | 2017-06-06 19:13 | Emergency Department Report ---
Blank Doc - Documentation Documentation: Patient has been a ED greater than 80 hours. After evaluation were mental health patient was deemed safe for discharge. 1013 will be rescinded as recommended. No suicidal homicidal ideation reported it this time. Impression and plan imported from a mental health refrigerator crater chart below Assessment and plan: Impression: Historical Dx: Early on stage dementia. Acute Stress Reaction. Today patient is calm during the assessment. Patient no threat to self. Recommendation/Plan: Rescind 1013. Patient can be picked up by her daughter. Per the patient's daughter, nursing/home care has been arranged.
[2017-06-06] MEDS ORDERED: MACROBID PO ONE (19:15)
[2017-06-07 00:17] VITALS: BP 146/70
== END 2017-06-06 20:15 | disposition home or self-care (01) ==
LOC: ED 09:28 → EEVIPCON 09:28 → ED 06-06 20:15
DX: T65.92XA Toxic effect of unspecified substance, intentional self-harm, initial encounter (principal); Y92.9 Unspecified place or not applicable; I10 Essential (primary) hypertension; E11.9 Type 2 diabetes mellitus without complications
CPT/HCPCS: 36415; 80048; 80074; 80307; 81001; 82962; 85025; 85610; 85730; 93005; 93010; 96372; 99285; A9270; G0480; 80320; J1815; J1818

== ENCOUNTER 2017-06-17 07:37 | Emergency (ER) | payer MEDICARE ==
[2017-06-17] MEDS ORDERED: TYLENOL PO ONE (08:40)
[2017-06-17] MEDS ORDERED: CATAPRES PO ONE (10:39)
[2017-06-17] MEDS ORDERED: MORPHINE IM ONE (10:39)
[2017-06-17] MEDS ORDERED: ZOFRAN IM ONE (10:39)
--- NOTE | 2017-06-17 10:45 | Emergency Department Report ---
HPI - General Chief Complaint: Pain General Time Seen by Provider: 06/17/17 10:27 - HPI HPI: Room 6 The patient is a 67-year-old female presented with a chief complaint of diarrhea. The patient states for the past 3 days she has had diarrhea and abdominal cramping. Patient denies nausea/vomiting, dysuria, hematuria or fever. The patient states this morning she fell in the bathroom striking the right side of her neck. Patient denies loss of consciousness. Patient states she was placed on antibiotics last week for UTI Location: Abdomen, neck/head Duration: 3 Days Quality: Pain, cramping Severity: Moderate Modifying factors: Unknown Context: see above Mode of transportation: not driving ED Past Medical Hx - Past Medical History Hx Hypertension: Yes Hx Diabetes: Yes Hx Renal Disease: Yes (history of renal insufficiency) Hx Psychiatric Treatment: Yes (depression paranoid schizophrenia) Additional medical history: HIGH CHOLESTEROL, neuropathy - Surgical History Hx Cholecystectomy: Yes Additional Surgical History: HYSTERECTOMY. BILATERAL FOOT SURGERY - Family History Family history: no significant - Social History Smoking Status: Never Smoker Substance Use Type: Alcohol (rarely) - Medications Home Medications: Home Medications Medication Instructions Recorded Confirmed Last Taken Type [place]-3 Fatty Acids [[place]-3] 1 tab PO DAILY 01/13/14 06/03/17 Unknown History Rosuvastatin (Nf) [Crestor] 20 mg PO DAILY 01/13/14 06/03/17 Unknown History Furosemide [Lasix] 20 mg PO QDAY #30 tablet 05/14/14 06/03/17 Unknown Rx Gabapentin [Neurontin] 800 mg PO TID #30 05/14/14 06/03/17 Unknown Rx Lisinopril [Zestril TAB] 10 mg PO QDAY #30 tablet 05/14/14 06/03/17 Unknown Rx Insulin Glargine,Hum.rec.anlog 12 unit SQ QHS 04/21/15 06/03/17 Unknown History [Lantus] Citalopram [Celexa] 20 mg PO DAILY #30 tablet 03/30/16 06/03/17 Unknown Rx Nitrofurantoin [place]/M-Cryst 100 mg PO Q12HR #10 capsule 12/29/16 06/03/17 Unknown Rx [Macrobid CAP] Fluconazole [Diflucan TAB] 150 mg PO ONCE #2 tablet 05/03/17 06/03/17 Unknown Rx Insulin Lispro [HumaLOG VIAL] 0 units SQ AC 06/03/17 06/03/17 Unknown History Nitrofurantoin [place]/M-Cryst 100 mg PO Q12HR #14 capsule 06/06/17 Unknown Rx [Macrobid CAP] metroNIDAZOLE [Flagyl] 500 mg PO Q12HR #14 tab 06/17/17 Unknown Rx ED Review of Systems ROS: Stated complaint: PAIN ALL OVER Other details as noted in HPI Comment: All other systems reviewed and negative Constitutional: denies: chills, fever Eyes: denies: eye pain, eye discharge, vision change ENT: denies: ear pain, throat pain Respiratory: denies: cough, shortness of breath, wheezing Cardiovascular: denies: chest pain, palpitations Endocrine: no symptoms reported Gastrointestinal: abdominal pain, diarrhea. denies: nausea, vomiting Genitourinary: denies: urgency, dysuria, discharge Musculoskeletal: arthralgia, myalgia. denies: back pain, joint swelling Skin: denies: rash, lesions Neurological: denies: headache, weakness, paresthesias Psychiatric: denies: anxiety, depression Hematological/Lymphatic: denies: easy bleeding, easy bruising Physical Exam - Physical Exam Vital Signs: Vital Signs 06/17/17 08:30 Temperature 98.2 F Pulse Rate 60 Respiratory 18 Rate Blood Pressure 192/76 O2 Sat by Pulse 100 Oximetry Physical Exam: GENERAL: The patient is well-developed well-nourished female lying on stretcher not appear to be in acute distress. [] HEENT: Normocephalic. Atraumatic. Extraocular motions are intact. Patient has moist mucous membranes. NECK: Supple. Trachea midline CHEST/LUNGS: Clear to auscultation. There is no respiratory distress noted. HEART/CARDIOVASCULAR: Regular. There is no tachycardia. There is no gallop rub or murmur. ABDOMEN: Abdomen is soft, with mild discomfort to palpation in the left upper quadrant and left lower quadrant. There is no guarding. Patient has normal bowel sounds. There is no abdominal distention. SKIN: There is no rash. There is no edema. There is no diaphoresis. NEURO: The patient is awake, alert, and oriented. The patient is cooperative. The patient has no focal neurologic deficits. The patient has normal speech. Cranial nerves II through XII grossly intact MUSCULOSKELETAL: There is no evidence of acute injury. ED Course Vital Signs 06/17/17 08:30 Temperature 98.2 F Pulse Rate 60 Respiratory 18 Rate Blood Pressure 192/76 O2 Sat by Pulse 100 Oximetry ED Medical Decision Making - Lab Data Result diagrams: 06/17/17 10:25 06/17/17 10:25 Laboratory Tests 06/17/17 06/17/17 06/17/17 10:25 10:25 10:25 WBC 8.2 RBC 3.72 Hgb 11.4 Hct 34.0 MCV 91 MCH 31 MCHC 34 RDW 13.8 Plt Count 250 Lymph % (Auto) 24.1 Blair % (Auto) 5.0 Eos % (Auto) 0.3 Baso % (Auto) 0.4 Lymph # 2.0 Blair # 0.4 Eos # 0.0 Baso # 0.0 Seg Neutrophils % 70.2 H Seg Neutrophils # 5.8 Sodium 146 H Potassium 3.6 Chloride 107.7 H Carbon Dioxide 25 Anion Gap 17 BUN 13 Creatinine 0.8 Estimated GFR > 60 BUN/Creatinine Ratio 16.25 Glucose 133 H Calcium 9.5 Total Bilirubin 0.30 Direct Bilirubin < 0.2 AST 18 ALT 13 Alkaline Phosphatase 65 Total Creatine Kinase CK-MB (CK-2) CK-MB (CK-2) Rel Index Troponin T Total Protein 7.3 Albumin 3.9 Albumin/Globulin Ratio 1.1 Lipase 28 Urine Color Urine Turbidity Urine pH Ur Specific [place] Urine Protein Urine Glucose (UA) Urine Ketones Urine Blood Urine Nitrite Urine Bilirubin Urine Urobilinogen Ur Leukocyte Esterase Urine WBC (Auto) Urine RBC (Auto) U Epithel Cells (Auto) Urine Bacteria (Auto) Urine Mucus 06/17/17 06/17/17 10:25 10:45 WBC RBC Hgb Hct MCV MCH MCHC RDW Plt Count Lymph % (Auto) Blair % (Auto) Eos % (Auto) Baso % (Auto) Lymph # Blair # Eos # Baso # Seg Neutrophils % Seg Neutrophils # Sodium Potassium Chloride Carbon Dioxide Anion Gap BUN Creatinine Estimated GFR BUN/Creatinine Ratio Glucose Calcium Total Bilirubin Direct Bilirubin AST ALT Alkaline Phosphatase Total Creatine Kinase 67 CK-MB (CK-2) 2.8 CK-MB (CK-2) Rel Index 4.1 H Troponin T < 0.010 Total Protein Albumin Albumin/Globulin Ratio Lipase Urine Color Yellow Urine Turbidity Clear Urine pH 6.0 Ur Specific [place] 1.021 Urine Protein 100 mg/dl Urine Glucose (UA) Neg Urine Ketones Neg Urine Blood Sm Urine Nitrite Pos Urine Bilirubin Neg Urine Urobilinogen < 2.0 Ur Leukocyte Esterase Lg Urine WBC (Auto) 28.0 H Urine RBC (Auto) 22.0 U Epithel Cells (Auto) < 1.0 Urine Bacteria (Auto) 3+ Urine Mucus Few - EKG Data -: EKG Interpreted by Me EKG shows normal: sinus rhythm Rate: normal - EKG Data When compared to previous EKG there are: previous EKG unavailable Interpretation: nonspecific ST-T wave darleen (flat T-wave in lead 3) - Radiology Data Radiology results: report reviewed (CT head, CT cervical spine, CT abdomen and pelvis), image reviewed (CT head, CT cervical spine, CT abdomen and pelvis) CT abdomen and pelvis. This is read by radiologist) (-no acute abdominal process is appreciated. No clicks left abdominal pain. Surgical changes CT cervical spine (read by radiologist)-cervical spondylosis. No acute process is noted CT head (read by radiologist) (-cranial CT scan within normal limits. No significant change since 05/03/2017 - Differential Diagnosis enteritis, pancreatitis, closed head injury, cervical strain, cervical frac Critical care attestation.: If time is entered above; I have spent that time in minutes in the direct care of this critically ill patient, excluding procedure time. ED Disposition Clinical Impression: Diarrhea, UTI (urinary tract infection) Disposition: DC-01 TO HOME OR SELFCARE Is pt being admited?: No Does the pt Need Aspirin: No Condition: Stable Instructions: Urinary Tract Infection in Women (ED), Acute Diarrhea (ED) Additional Instructions: Return to the emergency department immediately should you develop worsening symptoms, fever, inability to tolerate food or liquid or any other concerns. Prescriptions: metroNIDAZOLE [Flagyl] 500 mg PO Q12HR #14 tab Referrals: PRIMARY CARE, [Primary Care Provider] - 3-5 Days Time of Disposition: 13:31
[2017-06-17 10:51] LABS: BUN/Creatinine Ratio 16.25; Blood Urea Nitrogen 13 mg/dL (7-17); Carbon Dioxide 25 mmol/L (22-30); Glucose 133 mg/dL (65-100)
[2017-06-17 10:52] LABS: Anion Gap 17 mmol/L; Calcium 9.5 mg/dL (8.4-10.2); Chloride 107.7 mmol/L (98-107); Potassium 3.6 mmol/L (3.6-5.0); Sodium 146 mmol/L (137-145)
[2017-06-17 11:00] LABS: Creatine Kinase MB 2.8 ng/mL (0.0-4.0)
[2017-06-17 11:01] LABS: Alanine Aminotransferase 13 units/L (7-56); Albumin 3.9 g/dL (3.9-5); Albumin/Globulin Ratio 1.1 %; Alkaline Phosphatase 65 units/L (35-129); Creatine Kinase 67 units/L (30-135); Lipase 28 units/L (13-60); Total Protein 7.3 g/dL (6.3-8.2)
[2017-06-17 11:06] LABS: Basophils % (Auto) 0.4 % (0.0-1.8); Bilirubin,Direct < 0.2 mg/dL (0-0.2); Eosinophils % (Auto) 0.3 % (0.0-4.3); Hemoglobin 11.4 gm/dl (10.1-14.3); Mean Corpuscular HGB Conc 34 % (30-34); Mean Corpuscular Hemoglobin 31 pg (28-32); Mean Corpuscular Volume 91 fl (79-97); Platelet Count 250 K/mm3 (140-440); Red Blood Count 3.72 M/mm3 (3.65-5.03); Red Cell Distribution Width 13.8 % (13.2-15.2); White Blood Count 8.2 K/mm3 (4.5-11.0)
[2017-06-17] MEDS ORDERED: NACL 0.9% 1000 ML 1,000 ML IV ONE (11:13)
[2017-06-17 11:17] LABS: Bacteria,Urine 3+ /HPF (Negative); Bilirubin,Urine NEG (Negative); Blood,Urine SM (Negative); Ketones,Urine NEG (Negative); Leukocyte Esterase,Urine LG (Negative); Mucus,Urine FEW /HPF; Nitrite,Urine POS (Negative); Urobilinogen,Urine < 2.0 mg/dL (<2.0)
--- NOTE | 2017-06-17 13:19 | Cat Scan Report ---
CT SCAN OF THE CERVICAL SPINE: HISTORY: Neck pain after fall. TECHNIQUE: Contiguous 1.25 mm axial images of the cervical spine were obtained. Sagittal and coronal reformatted images. FINDINGS: There is normal alignment of the cervical spine. The body, pedicles and posterior ligaments are intact. No evidence of fracture or subluxation is seen. Mild to moderate multilevel degenerative changes present which is most pronounced at C5-6. The spinal canal appears normal. The prevertebral soft tissues appear normal. IMPRESSION: Cervical spondylosis. No acute process is noted.
--- NOTE | 2017-06-17 13:20 | Cat Scan Report ---
CT HEAD WITHOUT CONTRAST: HISTORY: Head injury, fall, pain. Serial contiguous axial images were obtained through the cranium. Intravenous contrast material was not administered. The ventricles are normal in size and appearance. There is no mass effect or midline shift. No areas of abnormally increased or decreased attenuation are seen. No mass lesion is seen. The mastoid air cells and visualized portions of the sinuses are normal. IMPRESSION: Cranial CT scan within normal limits. No significant change since 05/03/17.
--- NOTE | 2017-06-17 13:22 | Cat Scan Report ---
CT OF THE ABDOMEN AND PELVIS WITHOUT CONTRAST HISTORY: Left-sided abdominal pain, diarrhea. TECHNIQUE: Helical CT without contrast. Sagittal and coronal reformatted images. FINDINGS: Within the limits of a noncontrast exam, the abdominal and pelvic viscera are within normal limits. The liver, biliary system, pancreas, spleen, kidneys, adrenal glands and bladder are unremarkable. Cholecystectomy, hysterectomy and appendectomy changes are suspected. The bowel loops are normal caliber and wall thickness. The aorta is normal caliber. No ascites, bulky adenopathy or inflammatory changes. The lung bases are clear. Normal heart size. No suspicious bony lesion. IMPRESSION: No acute abdominal process is appreciated. No clear explanation for left abdominal pain. Surgical changes.
[2017-06-17 13:58] VITALS: BP 161/98
== END 2017-06-17 15:31 | disposition home or self-care (01) ==
LOC: ED 07:37
DX: R19.7 Diarrhea, unspecified (principal); N39.0 Urinary tract infection, site not specified; E11.9 Type 2 diabetes mellitus without complications; F20.9 Schizophrenia, unspecified; F32.9 Major depressive disorder, single episode, unspecified; E78.00 Pure hypercholesterolemia, unspecified; Z88.8 Allergy status to other drugs, medicaments and biological substances
CPT/HCPCS: 36415; 70450; 72125; 74176; 80048; 80074; 81001; 82550; 82553; 83690; 84484; 85025; 93005; 93010; 96372; 99284; J2270; J2405; J7030

== ENCOUNTER 2017-12-10 09:59 | Emergency (ER) | payer MEDICARE ==
[2017-12-10 11:12] LABS: Basophils % (Auto) 0.7 % (0.0-1.8); Eosinophils % (Auto) 0.4 % (0.0-4.3); Hematocrit 35.8 % (30.3-42.9); Hemoglobin 11.8 gm/dl (10.1-14.3); Lymphocytes # (Auto) 1.2 K/mm3 (1.2-5.4); Lymphocytes % (Auto) 18.6 % (13.4-35.0); Mean Corpuscular HGB Conc 33 % (30-34); Mean Corpuscular Hemoglobin 30 pg (28-32); Mean Corpuscular Volume 91 fl (79-97); Monocytes # (Auto) 0.2 K/mm3 (0.0-0.8); Monocytes % (Auto) 3.4 % (0.0-7.3); Platelet Count 244 K/mm3 (140-440); Red Blood Count 3.92 M/mm3 (3.65-5.03)
[2017-12-10 11:28] LABS: Calcium 9.5 mg/dL (8.4-10.2)
--- NOTE | 2017-12-10 12:15 | Emergency Department Report ---
HPI - HPI HPI: Room 10 The patient is 67-year-old female presenting with chief complaint of paranoia. The patient has a history of paranoid schizophrenia. When asked what made her come to the emergency department patient replies that her daughter has been "riding" her since she's been in [place]. The patient rambles off on a tangent during the interview. The patient states she believes "somebody came into my apartment in the middle the night and slipped something in" her. The patient believes smoke and her apartment gave her some medication. When asked how the medication was administered patient states she doesn't know because she was asleep. Patient states she had an episode of urinary incontinence. Patient denies suicidal or homicidal ideation. Patient denies auditory or visual hallucinations Location: Mental state Duration: [See above] Quality: Paranoia Severity: Moderate Modifying factors: [see above] Context: [see above] Mode of transportation: [not driving] <KRISTOPHER AMOS - Last Filed: 12/10/17 18:20> <KINJAL PRATT - Last Filed: 12/11/17 16:54> - General Chief Complaint: Overdose Time Seen by Provider: 12/10/17 11:56 ED Past Medical Hx - Past Medical History Previous Medical History?: Yes Hx Hypertension: Yes Hx Diabetes: Yes Hx Renal Disease: Yes (history of renal insufficiency) Hx Psychiatric Treatment: Yes (depression paranoid schizophrenia) Additional medical history: HIGH CHOLESTEROL, neuropathy - Surgical History Past Surgical History?: Yes Hx Cholecystectomy: Yes Additional Surgical History: HYSTERECTOMY. BILATERAL FOOT SURGERY - Family History Family history: no significant - Social History Smoking Status: Never Smoker Substance Use Type: None (denies illicit drug use), Alcohol (rarely), Prescribed , Tranquilizers, Other <KRISTOPHER AMOS - Last Filed: 12/10/17 18:20> <KINJAL PRATT - Last Filed: 12/11/17 16:54> - Medications Home Medications: Home Medications Medication Instructions Recorded Confirmed Last Taken Type Rillito-3 Fatty Acids [Rillito-3] 1 tab PO DAILY 01/13/14 06/03/17 Unknown History Rosuvastatin (Nf) [Crestor] 20 mg PO DAILY 01/13/14 06/03/17 Unknown History Furosemide [Lasix] 20 mg PO QDAY #30 tablet 05/14/14 06/03/17 Unknown Rx Gabapentin [Neurontin] 800 mg PO TID #30 05/14/14 06/03/17 Unknown Rx Lisinopril [Zestril TAB] 10 mg PO QDAY #30 tablet 05/14/14 06/03/17 Unknown Rx Insulin Glargine,Hum.rec.anlog 12 unit SQ QHS 04/21/15 06/03/17 Unknown History [Lantus] Citalopram [Celexa] 20 mg PO DAILY #30 tablet 03/30/16 06/03/17 Unknown Rx Nitrofurantoin [place]/M-Cryst 100 mg PO Q12HR #10 capsule 12/29/16 06/03/17 Unknown Rx [Macrobid CAP] Fluconazole [Diflucan TAB] 150 mg PO ONCE #2 tablet 05/03/17 06/03/17 Unknown Rx Insulin Lispro [HumaLOG VIAL] 0 units SQ AC 06/03/17 06/03/17 Unknown History Nitrofurantoin [place]/M-Cryst 100 mg PO Q12HR #14 capsule 06/06/17 Unknown Rx [Macrobid CAP] metroNIDAZOLE [Flagyl] 500 mg PO Q12HR #14 tab 06/17/17 Unknown Rx Sulfamethoxazole/Trimethoprim 1 each PO BID #6 tablet 12/10/17 Unknown Rx [Bactrim DS TAB] ED Review of Systems ROS: Stated complaint: OVERDOSE Other details as noted in HPI Psychiatric: denies: auditory hallucinations, visual hallucinations, homicidal thoughts, suicidal thoughts <KRISTOPHER AMOS - Last Filed: 12/10/17 18:20> ROS: Stated complaint: OVERDOSE Other details as noted in HPI <KINJAL PRATT - Last Filed: 12/11/17 16:54> Physical Exam - Physical Exam Vital Signs: Vital Signs 12/10/17 10:12 Temperature 98 F Pulse Rate 70 Blood Pressure 140/69 O2 Sat by Pulse 98 Oximetry Physical Exam: GENERAL: The patient is well-developed well-nourished female lying on stretcher not appearing to be in acute distress. [] HEENT: Normocephalic. Atraumatic. Extraocular motions are intact. Patient has moist mucous membranes. NECK: Supple. No meningitic signs are noted. There is no adenopathy noted. CHEST/LUNGS: Clear to auscultation. There is no respiratory distress noted. HEART/CARDIOVASCULAR: Regular. There is no tachycardia. There is no gallop rub or murmur. ABDOMEN: Abdomen is soft, nontender. Patient has normal bowel sounds. There is no abdominal distention. SKIN: There is no rash. There is no edema. There is no diaphoresis. NEURO: The patient is awake, alert, and oriented. The patient is cooperative. The patient has no focal neurologic deficits. The patient has normal speech. Cranial nerves II through XII grossly intact, no drift. Operations Analyst 5+/5 bilaterally. Moves all extremities well MUSCULOSKELETAL: There is no evidence of acute injury. <KRISTOPHER AMOS - Last Filed: 12/10/17 18:20> - Physical Exam Vital Signs: Vital Signs 12/10/17 12/10/17 12/10/17 10:12 10:29 10:30 Temperature 98 F Pulse Rate 70 63 Respiratory 15 15 Rate Blood Pressure 140/69 Blood Pressure [Right] O2 Sat by Pulse 98 Oximetry 12/10/17 12/10/17 12/10/17 11:00 11:30 12:00 Temperature Pulse Rate 62 65 65 Respiratory 16 14 12 Rate Blood Pressure 143/62 150/64 149/71 Blood Pressure [Right] O2 Sat by Pulse 100 Oximetry 12/10/17 12/10/17 12/10/17 12:30 13:00 13:30 Temperature Pulse Rate 70 74 72 Respiratory 14 17 17 Rate Blood Pressure 156/68 154/68 154/73 Blood Pressure [Right] O2 Sat by Pulse Oximetry 12/10/17 12/10/17 12/10/17 14:00 14:30 15:00 Temperature Pulse Rate 69 69 70 Respiratory 17 14 16 Rate Blood Pressure 147/70 150/71 151/66 Blood Pressure [Right] O2 Sat by Pulse Oximetry 12/10/17 12/10/17 12/10/17 15:30 16:00 16:30 Temperature Pulse Rate 69 54 L 53 L Respiratory 13 13 15 Rate Blood Pressure 157/69 144/60 144/60 Blood Pressure [Right] O2 Sat by Pulse 100 Oximetry 12/10/17 12/10/17 12/10/17 17:00 17:30 18:00 Temperature Pulse Rate 52 L 85 74 Respiratory 15 12 19 Rate Blood Pressure 149/60 146/74 158/61 Blood Pressure [Right] O2 Sat by Pulse 100 100 100 Oximetry 12/10/17 12/10/17 12/10/17 18:30 19:15 19:30 Temperature 98 F Pulse Rate 69 69 67 Respiratory 16 13 12 Rate Blood Pressure 143/59 159/71 Blood Pressure 162/69 [Right] O2 Sat by Pulse 99 100 100 Oximetry 12/10/17 12/10/17 12/10/17 20:00 20:30 21:00 Temperature Pulse Rate 58 L 49 L 49 L Respiratory 17 15 14 Rate Blood Pressure 157/61 137/51 152/55 Blood Pressure [Right] O2 Sat by Pulse 99 100 100 Oximetry 12/10/17 12/10/17 12/11/17 22:00 23:00 00:00 Temperature Pulse Rate 47 L 49 L 48 L Respiratory 14 14 9 L Rate Blood Pressure 142/51 137/67 144/67 Blood Pressure [Right] O2 Sat by Pulse 100 98 100 Oximetry 12/11/17 12/11/17 12/11/17 01:01 03:00 04:00 Temperature Pulse Rate 58 L 62 62 Respiratory 13 18 20 Rate Blood Pressure 136/64 157/70 146/68 Blood Pressure [Right] O2 Sat by Pulse 98 99 100 Oximetry 12/11/17 12/11/17 06:00 08:30 Temperature 98.4 F Pulse Rate 59 L 60 Respiratory 19 16 Rate Blood Pressure 161/66 Blood Pressure 146/69 [Right] O2 Sat by Pulse 100 100 Oximetry <KINJAL PRATT - Last Filed: 12/11/17 16:54> ED Course Vital Signs 12/10/17 10:12 Temperature 98 F Pulse Rate 70 Blood Pressure 140/69 O2 Sat by Pulse 98 Oximetry <KRISTOPHER AMOS - Last Filed: 12/10/17 18:20> Vital Signs 12/10/17 12/10/17 12/10/17 10:12 10:29 10:30 Temperature 98 F Pulse Rate 70 63 Respiratory 15 15 Rate Blood Pressure 140/69 Blood Pressure [Right] O2 Sat by Pulse 98 Oximetry 12/10/17 12/10/17 12/10/17 11:00 11:30 12:00 Temperature Pulse Rate 62 65 65 Respiratory 16 14 12 Rate Blood Pressure 143/62 150/64 149/71 Blood Pressure [Right] O2 Sat by Pulse 100 Oximetry 12/10/17 12/10/17 12/10/17 12:30 13:00 13:30 Temperature Pulse Rate 70 74 72 Respiratory 14 17 17 Rate Blood Pressure 156/68 154/68 154/73 Blood Pressure [Right] O2 Sat by Pulse Oximetry 12/10/17 12/10/17 12/10/17 14:00 14:30 15:00 Temperature Pulse Rate 69 69 70 Respiratory 17 14 16 Rate Blood Pressure 147/70 150/71 151/66 Blood Pressure [Right] O2 Sat by Pulse Oximetry 12/10/17 12/10/17 12/10/17 15:30 16:00 16:30 Temperature Pulse Rate 69 54 L 53 L Respiratory 13 13 15 Rate Blood Pressure 157/69 144/60 144/60 Blood Pressure [Right] O2 Sat by Pulse 100 Oximetry 12/10/17 12/10/17 12/10/17 17:00 17:30 18:00 Temperature Pulse Rate 52 L 85 74 Respiratory 15 12 19 Rate Blood Pressure 149/60 146/74 158/61 Blood Pressure [Right] O2 Sat by Pulse 100 100 100 Oximetry 12/10/17 12/10/17 12/10/17 18:30 19:15 19:30 Temperature 98 F Pulse Rate 69 69 67 Respiratory 16 13 12 Rate Blood Pressure 143/59 159/71 Blood Pressure 162/69 [Right] O2 Sat by Pulse 99 100 100 Oximetry 12/10/17 12/10/17 12/10/17 20:00 20:30 21:00 Temperature Pulse Rate 58 L 49 L 49 L Respiratory 17 15 14 Rate Blood Pressure 157/61 137/51 152/55 Blood Pressure [Right] O2 Sat by Pulse 99 100 100 Oximetry 12/10/17 12/10/17 12/11/17 22:00 23:00 00:00 Temperature Pulse Rate 47 L 49 L 48 L Respiratory 14 14 9 L Rate Blood Pressure 142/51 137/67 144/67 Blood Pressure [Right] O2 Sat by Pulse 100 98 100 Oximetry 12/11/17 12/11/17 12/11/17 01:01 03:00 04:00 Temperature Pulse Rate 58 L 62 62 Respiratory 13 18 20 Rate Blood Pressure 136/64 157/70 146/68 Blood Pressure [Right] O2 Sat by Pulse 98 99 100 Oximetry 12/11/17 12/11/17 06:00 08:30 Temperature 98.4 F Pulse Rate 59 L 60 Respiratory 19 16 Rate Blood Pressure 161/66 Blood Pressure 146/69 [Right] O2 Sat by Pulse 100 100 Oximetry <KINJAL PRATT - Last Filed: 12/11/17 16:54> ED Medical Decision Making - Lab Data Result diagrams: 12/10/17 10:44 12/10/17 10:44 - EKG Data -: EKG Interpreted by [facility] EKG shows normal: sinus rhythm Rate: normal - EKG Data When compared to previous EKG there are: previous EKG unavailable Interpretation: other (no ischemic changes seen) - Differential Diagnosis schizophrenia, UTI, urinary incontinence <KRISTOPHER AMOS - Last Filed: 12/10/17 18:20> - Lab Data Result diagrams: 12/10/17 10:44 12/10/17 10:44 Lab Results 12/10/17 12/10/17 12/10/17 Range/Units 10:44 10:44 10:44 WBC (4.5-11.0) K/mm3 RBC (3.65-5.03) M/mm3 Hgb (10.1-14.3) gm/dl Hct (30.3-42.9) % MCV (79-97) fl MCH (28-32) pg MCHC (30-34) % RDW (13.2-15.2) % Plt Count (140-440) K/mm3 Lymph % (Auto) (13.4-35.0) % [place] % (Auto) (0.0-7.3) % Eos % (Auto) (0.0-4.3) % Baso % (Auto) (0.0-1.8) % Lymph # (1.2-5.4) K/mm3 [place] # (0.0-0.8) K/mm3 Eos # (0.0-0.4) K/mm3 Baso # (0.0-0.1) K/mm3 Seg Neutrophils % (40.0-70.0) % Seg Neutrophils # (1.8-7.7) K/mm3 Sodium 146 H (137-145) mmol/L Potassium 3.6 (3.6-5.0) mmol/L Chloride 107.5 H (98-107) mmol/L Carbon Dioxide 25 (22-30) mmol/L Anion Gap 17 mmol/L BUN 24 H (7-17) mg/dL Creatinine 1.2 (0.7-1.2) mg/dL Estimated GFR 54 ml/min BUN/Creatinine Ratio 20 % Glucose 93 (65-100) mg/dL Calcium 9.5 (8.4-10.2) mg/dL Urine Color (Yellow) Urine Turbidity (Clear) Urine pH (5.0-7.0) Ur Specific [place] (1.003-1.030) Urine Protein (Negative) mg/dL Urine Glucose (UA) (Negative) mg/dL Urine Ketones (Negative) mg/dL Urine Blood (Negative) Urine Nitrite (Negative) Urine Bilirubin (Negative) Urine Urobilinogen (<2.0) mg/dL Ur Leukocyte Esterase (Negative) Urine WBC (Auto) (0.0-6.0) /HPF Urine RBC (Auto) (0.0-6.0) /HPF Urine Bacteria (Auto) (Negative) /HPF Salicylates < 0.3 L (2.8-20.0) mg/dL Urine Opiates Screen Urine Methadone Screen Acetaminophen < 15.0 (10.0-30.0) ug/mL Ur Barbiturates Screen Ur Phencyclidine Scrn Ur Amphetamines Screen U Benzodiazepines Scrn Urine Cocaine Screen U Marijuana (THC) Screen Drugs of Abuse Note Plasma/Serum Alcohol (0-0.07) % 12/10/17 12/10/17 12/10/17 Range/Units 10:44 10:44 12:32 WBC 6.4 (4.5-11.0) K/mm3 RBC 3.92 (3.65-5.03) M/mm3 Hgb 11.8 (10.1-14.3) gm/dl Hct 35.8 (30.3-42.9) % MCV 91 (79-97) fl MCH 30 (28-32) pg MCHC 33 (30-34) % RDW 15.0 (13.2-15.2) % Plt Count 244 (140-440) K/mm3 Lymph % (Auto) 18.6 (13.4-35.0) % [place] % (Auto) 3.4 (0.0-7.3) % Eos % (Auto) 0.4 (0.0-4.3) % Baso % (Auto) 0.7 (0.0-1.8) % Lymph # 1.2 (1.2-5.4) K/mm3 [place] # 0.2 (0.0-0.8) K/mm3 Eos # 0.0 (0.0-0.4) K/mm3 Baso # 0.0 (0.0-0.1) K/mm3 Seg Neutrophils % 76.9 H (40.0-70.0) % Seg Neutrophils # 4.9 (1.8-7.7) K/mm3 Sodium (137-145) mmol/L Potassium (3.6-5.0) mmol/L Chloride (98-107) mmol/L Carbon Dioxide (22-30) mmol/L Anion Gap mmol/L BUN (7-17) mg/dL Creatinine (0.7-1.2) mg/dL Estimated GFR ml/min BUN/Creatinine Ratio % Glucose (65-100) mg/dL Calcium (8.4-10.2) mg/dL Urine Color Yellow (Yellow) Urine Turbidity Clear (Clear) Urine pH 6.0 (5.0-7.0) Ur Specific [place] 1.014 (1.003-1.030) Urine Protein <15 mg/dl (Negative) mg/dL Urine Glucose (UA) Neg (Negative) mg/dL Urine Ketones Neg (Negative) mg/dL Urine Blood Neg (Negative) Urine Nitrite Neg (Negative) Urine Bilirubin Neg (Negative) Urine Urobilinogen < 2.0 (<2.0) mg/dL Ur Leukocyte Esterase Lg (Negative) Urine WBC (Auto) 7.0 H (0.0-6.0) /HPF Urine RBC (Auto) 1.0 (0.0-6.0) /HPF Urine Bacteria (Auto) 1+ (Negative) /HPF Salicylates (2.8-20.0) mg/dL Urine Opiates Screen Urine Methadone Screen Acetaminophen (10.0-30.0) ug/mL Ur Barbiturates Screen Ur Phencyclidine Scrn Ur Amphetamines Screen U Benzodiazepines Scrn Urine Cocaine Screen U Marijuana (THC) Screen Drugs of Abuse Note Plasma/Serum Alcohol < 0.01 (0-0.07) % 12/10/17 Range/Units 12:32 WBC (4.5-11.0) K/mm3 RBC (3.65-5.03) M/mm3 Hgb (10.1-14.3) gm/dl Hct (30.3-42.9) % MCV (79-97) fl MCH (28-32) pg MCHC (30-34) % RDW (13.2-15.2) % Plt Count (140-440) K/mm3 Lymph % (Auto) (13.4-35.0) % [place] % (Auto) (0.0-7.3) % Eos % (Auto) (0.0-4.3) % Baso % (Auto) (0.0-1.8) % Lymph # (1.2-5.4) K/mm3 [place] # (0.0-0.8) K/mm3 Eos # (0.0-0.4) K/mm3 Baso # (0.0-0.1) K/mm3 Seg Neutrophils % (40.0-70.0) % Seg Neutrophils # (1.8-7.7) K/mm3 Sodium (137-145) mmol/L Potassium (3.6-5.0) mmol/L Chloride (98-107) mmol/L Carbon Dioxide (22-30) mmol/L Anion Gap mmol/L BUN (7-17) mg/dL Creatinine (0.7-1.2) mg/dL Estimated GFR ml/min BUN/Creatinine Ratio % Glucose (65-100) mg/dL Calcium (8.4-10.2) mg/dL Urine Color (Yellow) Urine Turbidity (Clear) Urine pH (5.0-7.0) Ur Specific [place] (1.003-1.030) Urine Protein (Negative) mg/dL Urine Glucose (UA) (Negative) mg/dL Urine Ketones (Negative) mg/dL Urine Blood (Negative) Urine Nitrite (Negative) Urine Bilirubin (Negative) Urine Urobilinogen (<2.0) mg/dL Ur Leukocyte Esterase (Negative) Urine WBC (Auto) (0.0-6.0) /HPF Urine RBC (Auto) (0.0-6.0) /HPF Urine Bacteria (Auto) (Negative) /HPF Salicylates (2.8-20.0) mg/dL Urine Opiates Screen Presumptive negative Urine Methadone Screen Presumptive negative Acetaminophen (10.0-30.0) ug/mL Ur Barbiturates Screen Presumptive negative Ur Phencyclidine Scrn Presumptive negative Ur Amphetamines Screen Presumptive negative U Benzodiazepines Scrn Presumptive negative Urine Cocaine Screen Presumptive negative U Marijuana (THC) Screen Presumptive negative Drugs of Abuse Note Disclamer Plasma/Serum Alcohol (0-0.07) % - Medical Decision Making Patient has been awaiting transportation home and arrangements for follow-up these have been made at this time and the patient will be discharged. <KINJAL PRATT - Last Filed: 12/11/17 16:54> Critical care attestation.: If time is entered above; I have spent that time in minutes in the direct care of this critically ill patient, excluding procedure time. <KRISTOPHER AMOS - Last Filed: 12/10/17 18:20> Critical care attestation.: If time is entered above; I have spent that time in minutes in the direct care of this critically ill patient, excluding procedure time. <KINJAL PRATT - Last Filed: 12/11/17 16:54> ED Disposition Is pt being admited?: No Does the pt Need Aspirin: No Time of Disposition: 18:21 (awaiting social work eval to determine safety of discharge and patient home. Dispo per SW) <KRISTOPHER AMOS - Last Filed: 12/10/17 18:20> <KINJAL PRATT - Last Filed: 12/11/17 16:54> Clinical Impression: Paranoid schizophrenia UTI (urinary tract infection) Qualifiers: Urinary tract infection type: site unspecified Hematuria presence: without hematuria Qualified Code(s): N39.0 - Urinary tract infection, site not specified Disposition: TO HOME OR SELFCARE Condition: Stable Prescriptions: Sulfamethoxazole/Trimethoprim [Bactrim DS TAB] 1 each PO BID #6 tablet Referrals: PRIMARY CARE, [Primary Care Provider] - 3-5 Days
[2017-12-10 13:06] LABS: Bacteria,Urine 1+ /HPF (Negative); Bilirubin,Urine NEG (Negative); Blood,Urine NEG (Negative); Color,Urine Yellow (Yellow); Protein,Urine <15 mg/dL mg/dL (Negative); Urobilinogen,Urine < 2.0 mg/dL (<2.0)
[2017-12-10 13:12] LABS: Amphetamine Screen,Urine PRESUMPTIVE NEGATIVE; Benzodiazepines Screen,Urine PRESUMPTIVE NEGATIVE; Cannabinoid Screen,Urine PRESUMPTIVE NEGATIVE; Cocaine Screen,Urine PRESUMPTIVE NEGATIVE; Methadone Screen,Urine PRESUMPTIVE NEGATIVE; Opiate Screen,Urine PRESUMPTIVE NEGATIVE
[2017-12-11 11:06] VITALS: BP 146/69
== END 2017-12-11 17:00 | disposition home or self-care (01) ==
LOC: ED 09:59
DX: N39.0 Urinary tract infection, site not specified (principal); I10 Essential (primary) hypertension; E11.9 Type 2 diabetes mellitus without complications; F20.0 Paranoid schizophrenia; E78.00 Pure hypercholesterolemia, unspecified; Z90.49 Acquired absence of other specified parts of digestive tract; Z90.710 Acquired absence of both cervix and uterus; Z91.041 Radiographic dye allergy status; Z79.4 Long term (current) use of insulin
CPT/HCPCS: 36415; 80048; 80307; 81001; 85025; 93005; 93010; 99284; G0480; 80320

== ENCOUNTER 2017-12-15 08:47 | Inpatient (IN) | payer MEDICARE ==
[2017-12-15] MEDS ORDERED: NACL 0.9% 1000 ML 1,000 ML IV ONE (10:24)
--- NOTE | 2017-12-15 11:01 | XRay Report ---
AP CHEST: HISTORY: Hypertension AP view of the chest demonstrates a normal mediastinal and cardiac contour with clear lungs and normal bony and soft tissue structures. IMPRESSION: Unremarkable AP chest.
[2017-12-15 11:05] LABS: Bacteria,Urine 2+ /HPF (Negative); Bilirubin,Urine NEG (Negative); Blood,Urine NEG (Negative); Color,Urine Yellow (Yellow); Mucus,Urine FEW /HPF; Protein,Urine <15 mg/dL mg/dL (Negative); Urobilinogen,Urine < 2.0 mg/dL (<2.0)
[2017-12-15 11:08] LABS: Amphetamine Screen,Urine PRESUMPTIVE NEGATIVE; Benzodiazepines Screen,Urine PRESUMPTIVE NEGATIVE; Cannabinoid Screen,Urine PRESUMPTIVE NEGATIVE; Cocaine Screen,Urine PRESUMPTIVE NEGATIVE; Methadone Screen,Urine PRESUMPTIVE NEGATIVE; Opiate Screen,Urine PRESUMPTIVE NEGATIVE
[2017-12-15 11:42] LABS: INR 0.91 (0.87-1.13)
[2017-12-15 11:54] LABS: Alanine Aminotransferase 16 units/L (7-56); Albumin 3.8 g/dL (3.9-5); BUN/Creatinine Ratio 24; Blood Urea Nitrogen 24 mg/dL (7-17); Hemolysis Index 17
[2017-12-15 11:58] LABS: Bilirubin,Direct < 0.2 mg/dL (0-0.2)
[2017-12-15 12:29] LABS: Hematocrit 33.4 % (30.3-42.9); Hemoglobin 11.2 gm/dl (10.1-14.3); Mean Corpuscular HGB Conc 34 % (30-34); Mean Corpuscular Hemoglobin 31 pg (28-32); Mean Corpuscular Volume 92 fl (79-97); Platelet Count 242 K/mm3 (140-440); Red Blood Count 3.62 M/mm3 (3.65-5.03); Red Cell Distribution Width 14.4 % (13.2-15.2)
[2017-12-15] MEDS ORDERED: ROCEPHIN/NS 1 GM/50 ML 1 GM/50 ML BAG IV ONE (12:59)
[2017-12-15] MEDS ORDERED: cefTRIAXone 1 GM in NACL 0.9% 20 ML IV ONE (13:15)
--- NOTE | 2017-12-15 14:13 | Emergency Department Report ---
ED General Adult HPI - General Chief complaint: Weakness Stated complaint: GENERAL WEAKNESS Time Seen by Provider: 12/15/17 10:22 Source: EMS Mode of arrival: Stretcher Limitations: No Limitations - History of Present Illness Initial comments: This is a 67 year old insulin-dependent diabetic who has been here before with hallucinosis and suicidal ideation. She was seen by Dr. Sandoval a psychiatrist. She eventually was discharged from the emergency department on 06/05/2017. 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 She presents to the emergency department today with altered mental status. She tells me that she called the ambulance due to shortness of breath. She is said to have a diagnosis of paranoid schizophrenia with depression. She tells me that she lives alone. The nurse tells me that she has been in touch patient's family who states that she is paranoid. They state that she is -: Gradual - Related Data Home Medications Medication Instructions Recorded Confirmed Last Taken [place]-3 Fatty Acids [[place]-3] 1 tab PO DAILY 01/13/14 06/03/17 Unknown Rosuvastatin (Nf) [Crestor] 20 mg PO DAILY 01/13/14 06/03/17 Unknown Insulin Glargine,Hum.rec.anlog 12 unit SQ QHS 04/21/15 06/03/17 Unknown [Lantus] Insulin Lispro [HumaLOG VIAL] 0 units SQ AC 06/03/17 06/03/17 Unknown Previous Rx's Medication Instructions Recorded Last Taken Type Furosemide [Lasix] 20 mg PO QDAY #30 tablet 05/14/14 Unknown Rx Gabapentin [Neurontin] 800 mg PO TID #30 05/14/14 Unknown Rx Lisinopril [Zestril TAB] 10 mg PO QDAY #30 tablet 05/14/14 Unknown Rx Citalopram [Celexa] 20 mg PO DAILY #30 tablet 03/30/16 Unknown Rx Nitrofurantoin [place]/M-Cryst 100 mg PO Q12HR #10 capsule 12/29/16 Unknown Rx [Macrobid CAP] Fluconazole [Diflucan TAB] 150 mg PO ONCE #2 tablet 05/03/17 Unknown Rx Nitrofurantoin [place]/M-Cryst 100 mg PO Q12HR #14 capsule 06/06/17 Unknown Rx [Macrobid CAP] metroNIDAZOLE [Flagyl] 500 mg PO Q12HR #14 tab 06/17/17 Unknown Rx Sulfamethoxazole/Trimethoprim 1 each PO BID #6 tablet 12/10/17 Unknown Rx [Bactrim DS TAB] Allergies Allergy/AdvReac Type Severity Reaction Status Date / Time Iodinated Contrast- Oral and Allergy Anaphylaxis Verified 12/15/17 13:00 IV Dye [Iodinated Contrast Media - IV Dye] ED Review of Systems ROS: Stated complaint: GENERAL WEAKNESS Other details as noted in HPI Comment: Unobtainable due to pts medical conditions ED Past Medical Hx - Past Medical History Hx Hypertension: Yes Hx Heart Attack/AMI: No Hx Congestive Heart Failure: No Hx Diabetes: Yes Hx Deep Vein Thrombosis: No Hx Liver Disease: No Hx Renal Disease: Yes (history of renal insufficiency) Hx Arthritis: No Hx Kidney Stones: No Hx Psychiatric Treatment: Yes (depression paranoid schizophrenia) Additional medical history: HIGH CHOLESTEROL, neuropathy - Surgical History Hx Coronary Stent: No Hx Open Heart Surgery: No Hx Pacemaker: No Hx Internal Defibrillator: No Hx Cholecystectomy: Yes Hx Appendectomy: No Hx Breast Surgery: No Additional Surgical History: HYSTERECTOMY. BILATERAL FOOT SURGERY - Social History Smoking Status: Never Smoker Substance Use Type: None - Medications Home Medications: Home Medications Medication Instructions Recorded Confirmed Last Taken Type [place]-3 Fatty Acids [[place]-3] 1 tab PO DAILY 01/13/14 06/03/17 Unknown History Rosuvastatin (Nf) [Crestor] 20 mg PO DAILY 01/13/14 06/03/17 Unknown History Furosemide [Lasix] 20 mg PO QDAY #30 tablet 05/14/14 06/03/17 Unknown Rx Gabapentin [Neurontin] 800 mg PO TID #30 05/14/14 06/03/17 Unknown Rx Lisinopril [Zestril TAB] 10 mg PO QDAY #30 tablet 05/14/14 06/03/17 Unknown Rx Insulin Glargine,Hum.rec.anlog 12 unit SQ QHS 04/21/15 06/03/17 Unknown History [Lantus] Citalopram [Celexa] 20 mg PO DAILY #30 tablet 03/30/16 06/03/17 Unknown Rx Nitrofurantoin [place]/M-Cryst 100 mg PO Q12HR #10 capsule 12/29/16 06/03/17 Unknown Rx [Macrobid CAP] Fluconazole [Diflucan TAB] 150 mg PO ONCE #2 tablet 05/03/17 06/03/17 Unknown Rx Insulin Lispro [HumaLOG VIAL] 0 units SQ AC 06/03/17 06/03/17 Unknown History Nitrofurantoin [place]/M-Cryst 100 mg PO Q12HR #14 capsule 06/06/17 Unknown Rx [Macrobid CAP] metroNIDAZOLE [Flagyl] 500 mg PO Q12HR #14 tab 06/17/17 Unknown Rx Sulfamethoxazole/Trimethoprim 1 each PO BID #6 tablet 12/10/17 Unknown Rx [Bactrim DS TAB] ED Physical Exam - General Limitations: Altered Mental Status General appearance: lethargic, cachectic, other (speaking in a very soft voice) - Head Head exam: Present: atraumatic - Eye Eye exam: Present: normal appearance, PERRL, EOMI. Absent: scleral icterus - ENT ENT exam: Present: normal exam - Neck Neck exam: Present: normal inspection. Absent: tenderness, meningismus - Respiratory Respiratory exam: Present: normal lung sounds bilaterally. Absent: respiratory distress - Cardiovascular Cardiovascular Exam: Present: regular rate, normal rhythm. Absent: systolic murmur, diastolic murmur, rubs, gallop - GI/Abdominal GI/Abdominal exam: Present: soft, normal bowel sounds. Absent: distended, tenderness, guarding, rebound, rigid - Extremities Exam Extremities exam: Present: normal inspection, normal capillary refill. Absent: joint swelling, calf tenderness - Neurological Exam Neurological exam: Present: altered (lethargic), CN II-XII intact. Absent: motor sensory deficit - Psychiatric Psychiatric exam: Present: flat affect, other (paranoid) - Skin Skin exam: Present: warm, dry, intact, normal color. Absent: rash ED Course Vital Signs 12/15/17 12/15/17 12/15/17 08:54 08:58 09:00 Temperature 98.5 F Pulse Rate 57 L 58 L Respiratory 11 L 18 14 Rate Blood Pressure 146/60 134/58 O2 Sat by Pulse 100 100 Oximetry 12/15/17 12/15/17 12/15/17 09:16 09:30 09:46 Temperature Pulse Rate 56 L 58 L 58 L Respiratory 15 13 11 L Rate Blood Pressure 134/58 137/60 125/60 O2 Sat by Pulse 99 100 100 Oximetry 12/15/17 12/15/17 12/15/17 10:00 10:15 10:30 Temperature Pulse Rate 55 L 50 L 62 Respiratory 13 13 15 Rate Blood Pressure 135/60 138/56 143/66 O2 Sat by Pulse 99 100 89 Oximetry 12/15/17 12/15/17 12/15/17 10:45 11:00 11:15 Temperature Pulse Rate 61 60 57 L Respiratory 15 15 14 Rate Blood Pressure 148/63 148/63 138/60 O2 Sat by Pulse 100 100 100 Oximetry 12/15/17 12/15/17 12/15/17 11:30 11:45 12:00 Temperature Pulse Rate 62 59 L 61 Respiratory 16 17 15 Rate Blood Pressure 144/65 135/61 145/62 O2 Sat by Pulse 100 100 100 Oximetry 12/15/17 12/15/17 12/15/17 12:15 12:30 12:45 Temperature Pulse Rate 62 62 64 Respiratory 14 16 17 Rate Blood Pressure 146/61 142/60 146/58 O2 Sat by Pulse 100 100 100 Oximetry 12/15/17 12/15/17 13:00 13:15 Temperature Pulse Rate 64 58 L Respiratory 14 14 Rate Blood Pressure 150/66 150/62 O2 Sat by Pulse 100 100 Oximetry ED Medical Decision Making - Lab Data Result diagrams: 12/15/17 12:08 12/15/17 10:51 Laboratory Results - last 24 hr 12/15/17 12/15/17 12/15/17 10:38 10:38 10:51 WBC RBC Hgb Hct MCV MCH MCHC RDW Plt Count Lymph % (Auto) [place] % (Auto) Eos % (Auto) Baso % (Auto) Lymph # [place] # Eos # Baso # Seg Neutrophils % Seg Neutrophils # PT 12.7 INR 0.91 APTT 20.0 L Sodium Potassium Chloride Carbon Dioxide Anion Gap BUN Creatinine Estimated GFR BUN/Creatinine Ratio Glucose Lactic Acid Calcium Total Bilirubin Direct Bilirubin Indirect Bilirubin AST ALT Alkaline Phosphatase Ammonia Total Creatine Kinase Troponin T NT-Pro-B Natriuret Pep Total Protein Albumin Albumin/Globulin Ratio TSH Urine Color Yellow Urine Turbidity Clear Urine pH 6.0 Ur Specific [place] 1.020 Urine Protein <15 mg/dl Urine Glucose (UA) Neg Urine Ketones Neg Urine Blood Neg Urine Nitrite Pos Urine Bilirubin Neg Urine Urobilinogen < 2.0 Ur Leukocyte Esterase Sm Urine WBC (Auto) 9.0 H Urine RBC (Auto) 1.0 U Epithel Cells (Auto) < 1.0 Urine Bacteria (Auto) 2+ Urine Mucus Few Salicylates Urine Opiates Screen Presumptive negative Urine Methadone Screen Presumptive negative Acetaminophen Ur Barbiturates Screen Presumptive negative Ur Phencyclidine Scrn Presumptive negative Ur Amphetamines Screen Presumptive negative U Benzodiazepines Scrn Presumptive negative Urine Cocaine Screen Presumptive negative U Marijuana (THC) Screen Presumptive negative Drugs of Abuse Note Disclamer 12/15/17 12/15/17 12/15/17 10:51 10:51 10:51 WBC RBC Hgb Hct MCV MCH MCHC RDW Plt Count Lymph % (Auto) [place] % (Auto) Eos % (Auto) Baso % (Auto) Lymph # [place] # Eos # Baso # Seg Neutrophils % Seg Neutrophils # PT INR APTT Sodium 145 Potassium 4.5 Chloride 109.0 H Carbon Dioxide 21 L Anion Gap 20 BUN 24 H Creatinine 1.0 Estimated GFR > 60 BUN/Creatinine Ratio 24 Glucose 100 Lactic Acid 1.00 Calcium 9.0 Total Bilirubin 0.20 Direct Bilirubin < 0.2 Indirect Bilirubin 0.0 AST 20 ALT 16 Alkaline Phosphatase 73 Ammonia Total Creatine Kinase 63 Troponin T < 0.010 NT-Pro-B Natriuret Pep Total Protein 6.9 Albumin 3.8 L Albumin/Globulin Ratio 1.2 TSH Urine Color Urine Turbidity Urine pH Ur Specific [place] Urine Protein Urine Glucose (UA) Urine Ketones Urine Blood Urine Nitrite Urine Bilirubin Urine Urobilinogen Ur Leukocyte Esterase Urine WBC (Auto) Urine RBC (Auto) U Epithel Cells (Auto) Urine Bacteria (Auto) Urine Mucus Salicylates < 0.3 L Urine Opiates Screen Urine Methadone Screen Acetaminophen Ur Barbiturates Screen Ur Phencyclidine Scrn Ur Amphetamines Screen U Benzodiazepines Scrn Urine Cocaine Screen U Marijuana (THC) Screen Drugs of Abuse Note 12/15/17 12/15/17 12/15/17 10:51 10:51 10:51 WBC RBC Hgb Hct MCV MCH MCHC RDW Plt Count Lymph % (Auto) [place] % (Auto) Eos % (Auto) Baso % (Auto) Lymph # [place] # Eos # Baso # Seg Neutrophils % Seg Neutrophils # PT INR APTT Sodium Potassium Chloride Carbon Dioxide Anion Gap BUN Creatinine Estimated GFR BUN/Creatinine Ratio Glucose Lactic Acid Calcium Total Bilirubin Direct Bilirubin Indirect Bilirubin AST ALT Alkaline Phosphatase Ammonia Total Creatine Kinase Troponin T NT-Pro-B Natriuret Pep 201.7 Total Protein Albumin Albumin/Globulin Ratio TSH 0.528 Urine Color Urine Turbidity Urine pH Ur Specific [place] Urine Protein Urine Glucose (UA) Urine Ketones Urine Blood Urine Nitrite Urine Bilirubin Urine Urobilinogen Ur Leukocyte Esterase Urine WBC (Auto) Urine RBC (Auto) U Epithel Cells (Auto) Urine Bacteria (Auto) Urine Mucus Salicylates Urine Opiates Screen Urine Methadone Screen Acetaminophen < 5.0 L Ur Barbiturates Screen Ur Phencyclidine Scrn Ur Amphetamines Screen U Benzodiazepines Scrn Urine Cocaine Screen U Marijuana (THC) Screen Drugs of Abuse Note 12/15/17 12/15/17 12:08 12:49 WBC 6.0 RBC 3.62 L Hgb 11.2 Hct 33.4 MCV 92 MCH 31 MCHC 34 RDW 14.4 Plt Count 242 Lymph % (Auto) [employer] [place] % (Auto) [employer] Manager Eos % (Auto) [employer] Manager Baso % (Auto) [employer] Manager Lymph # [employer] Manager [place] # [employer] Manager Eos # [employer] Manager Baso # [employer] Manager Seg Neutrophils % [employer] Manager Seg Neutrophils # [employer] Manager PT INR APTT Sodium Potassium Chloride Carbon Dioxide Anion Gap BUN Creatinine Estimated GFR BUN/Creatinine Ratio Glucose Lactic Acid Calcium Total Bilirubin Direct Bilirubin Indirect Bilirubin AST ALT Alkaline Phosphatase Ammonia 12.0 L Total Creatine Kinase Troponin T NT-Pro-B Natriuret Pep Total Protein Albumin Albumin/Globulin Ratio TSH Urine Color Urine Turbidity Urine pH Ur Specific [place] Urine Protein Urine Glucose (UA) Urine Ketones Urine Blood Urine Nitrite Urine Bilirubin Urine Urobilinogen Ur Leukocyte Esterase Urine WBC (Auto) Urine RBC (Auto) U Epithel Cells (Auto) Urine Bacteria (Auto) Urine Mucus Salicylates Urine Opiates Screen Urine Methadone Screen Acetaminophen Ur Barbiturates Screen Ur Phencyclidine Scrn Ur Amphetamines Screen U Benzodiazepines Scrn Urine Cocaine Screen U Marijuana (THC) Screen Drugs of Abuse Note Critical care attestation.: If time is entered above; I have spent that time in minutes in the direct care of this critically ill patient, excluding procedure time. ED Disposition Clinical Impression: Prerenal azotemia, Paranoid schizophrenia UTI (urinary tract infection) Qualifiers: Urinary tract infection type: site unspecified Hematuria presence: without hematuria Qualified Code(s): N39.0 - Urinary tract infection, site not specified Disposition: OP ADMIT IP TO THIS HOSP Is pt being admited?: Yes Does the pt Need Aspirin: Yes Condition: Stable Referrals: PRIMARY CARE, [Primary Care Provider] - 3-5 Days Time of Disposition: 14:25
[2017-12-15] MEDS ORDERED: BABY ASPIRIN PO ONE (14:25)
--- NOTE | 2017-12-15 15:27 | History and Physical Report ---
History of Present Illness Date of examination: 12/15/17 Date of admission: 12/15/17 14:26 Chief complaint: Chief complaint: Feeling weak and short of breath. 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 No fever no chills. No cough. Patient has been admitted before with hallucinosis and suicidal ideation. Patient apparently has early dementia. Patient also has a diagnosis of paranoid schizophrenia with depression. Patient apparently lives alone. As per the family patient is paranoid. Some shortness of breath present. No chest pain no palpitations no diaphoresis. No recent travel. No dysuria. Past Medical History Hx Hypertension: Yes Hx Diabetes: Yes Hx Renal Disease: Yes (history of renal insufficiency) Hx Psychiatric Treatment: Yes (depression paranoid schizophrenia) Additional medical history: HIGH CHOLESTEROL, neuropathy Surgical History Additional Surgical History: HYSTERECTOMY. BILATERAL FOOT SURGERY Social History Smoking Status: Never Smoker Substance Use Type: None Medications Home Medications: Home Medications Medication Instructions Recorded Confirmed Last Taken Type Waterproof-3 Fatty Acids [Waterproof-3] 1 tab PO DAILY 01/13/14 06/03/17 Unknown History Rosuvastatin (Nf) [Crestor] 20 mg PO DAILY 01/13/14 06/03/17 Unknown History Furosemide [Lasix] 20 mg PO QDAY #30 tablet 05/14/14 06/03/17 Unknown Rx Gabapentin [Neurontin] 800 mg PO TID #30 05/14/14 06/03/17 Unknown Rx Lisinopril [Zestril TAB] 10 mg PO QDAY #30 tablet 05/14/14 06/03/17 Unknown Rx Insulin Glargine,Hum.rec.anlog 12 unit SQ QHS 04/21/15 06/03/17 Unknown History [Lantus] Citalopram [Celexa] 20 mg PO DAILY #30 tablet 03/30/16 06/03/17 Unknown Rx Nitrofurantoin Trigg/M-Cryst 100 mg PO Q12HR #10 capsule 12/29/16 06/03/17 Unknown Rx [Macrobid CAP] Fluconazole [Diflucan TAB] 150 mg PO ONCE #2 tablet 05/03/17 06/03/17 Unknown Rx Insulin Lispro [HumaLOG VIAL] 0 units SQ AC 06/03/17 06/03/17 Unknown History Nitrofurantoin Trigg/M-Cryst 100 mg PO Q12HR #14 capsule 06/06/17 Unknown Rx [Macrobid CAP] metroNIDAZOLE [Flagyl] 500 mg PO Q12HR #14 tab 06/17/17 Unknown Rx Sulfamethoxazole/Trimethoprim 1 each PO BID #6 tablet 12/10/17 Unknown Rx [Bactrim DS TAB] Review of Systems ROS: Stated complaint: GENERAL WEAKNESS Other details as noted in HPI Comment: Unobtainable due to pts medical conditions 14 point review of systems attempted Medications and Allergies Allergies Allergy/AdvReac Type Severity Reaction Status Date / Time Iodinated Contrast- Oral and Allergy Anaphylaxis Verified 12/15/17 13:00 IV Dye [Iodinated Contrast Media - IV Dye] Home Medications Medication Instructions Recorded Confirmed Last Taken Type Waterproof-3 Fatty Acids [Waterproof-3] 1 tab PO DAILY 01/13/14 12/15/17 12/15/17 08:00 History Rosuvastatin (Nf) [Crestor] 20 mg PO DAILY 01/13/14 12/15/17 12/15/17 08:00 History Furosemide [Lasix] 20 mg PO QDAY #30 tablet 05/14/14 12/15/17 12/15/17 08:00 Rx Gabapentin [Neurontin] 800 mg PO TID #30 05/14/14 12/15/17 12/15/17 08:00 Rx Lisinopril [Zestril TAB] 10 mg PO QDAY #30 tablet 05/14/14 12/15/17 12/15/17 08: 00 Rx Insulin Glargine,Hum.rec.anlog 12 unit SQ QHS 04/21/15 12/15/17 Unknown History [Lantus] Citalopram [Celexa] 20 mg PO DAILY #30 tablet 03/30/16 12/15/17 12/15/17 08:00 Rx Nitrofurantoin Trigg/M-Cryst 100 mg PO Q12HR #10 capsule 12/29/16 12/15/17 08:00 Rx [Macrobid CAP] Fluconazole [Diflucan TAB] 150 mg PO ONCE #2 tablet 05/03/17 12/15/17 Unknown Rx Insulin Lispro [HumaLOG VIAL] 0 units SQ AC 06/03/17 12/15/17 Unknown History Nitrofurantoin Trigg/M-Cryst 100 mg PO Q12HR #14 capsule 06/06/17 12/15/17 08:00 Rx [Macrobid CAP] metroNIDAZOLE [Flagyl] 500 mg PO Q12HR #14 tab 06/17/17 12/15/17 12/15/17 08:00 Rx Sulfamethoxazole/Trimethoprim 1 each PO BID #6 tablet 12/10/17 12/15/17 08:00 Rx [Bactrim DS TAB] Exam - Physical Exam Narrative exam: Lying in bed comfortably - Constitutional Vitals: Temp Pulse Resp BP Pulse Ox 98.5 F 58 L 14 150/62 100 12/15/17 08:58 12/15/17 13:15 12/15/17 13:15 12/15/17 13:15 12/15/17 13:15 General appearance: Present: no acute distress, well-nourished - EENT Eyes: Present: PERRL ENT: hearing intact, clear oral mucosa - Neck Neck: Present: supple, normal ROM - Respiratory Respiratory effort: normal Respiratory: bilateral: CTA - Cardiovascular Heart rate: 80 Rhythm: regular (the patient) Heart Sounds: Present: S1 & S2. Absent: rub, click - Extremities Extremities: no ischemia, pulses intact, pulses symmetrical, No edema Peripheral Pulses: within normal limits - Abdominal General gastrointestinal: Present: soft, non-tender, non-distended, normal bowel sounds Female genitourinary: Present: normal - Integumentary Integumentary: Present: clear, warm, dry - Musculoskeletal Musculoskeletal: gait normal, strength equal bilaterally - Psychiatric Psychiatric: appropriate mood/affect, intact judgment & insight - Neurologic Neurologic: CNII-XII intact, moves all extremities, gait normal - Allied Health Allied health notes reviewed: nursing, case management Results - Labs CBC & Chem 7: 12/15/17 12:08 12/15/17 10:51 Labs: Laboratory Last Values WBC 6.0 K/mm3 (4.5-11.0) 12/15/17 12:08 RBC 3.62 M/mm3 (3.65-5.03) L 12/15/17 12:08 Hgb 11.2 gm/dl (10.1-14.3) 12/15/17 12:08 Hct 33.4 % (30.3-42.9) 12/15/17 12:08 MCV 92 fl (79-97) 12/15/17 12:08 MCH 31 pg (28-32) 12/15/17 12:08 MCHC 34 % (30-34) 12/15/17 12:08 RDW 14.4 % (13.2-15.2) 12/15/17 12:08 Plt Count 242 K/mm3 (140-440) 12/15/17 12:08 Lymph % (Auto) [employer] 12/15/17 12:08 [place] % (Auto) Showcase [employer] 12/15/17 12:08 Eos % (Auto) Showcase [employer] 12/15/17 12:08 Baso % (Auto) [employer]case [employer] 12/15/17 12:08 Lymph # Showcase [employer] 12/15/17 12:08 Trigg # Showcase Maker 12/15/17 12:08 Eos # Showcase Maker 12/15/17 12:08 Baso # Showcase Maker 12/15/17 12:08 Seg Neutrophils % Showcase [employer] 12/15/17 12:08 Seg Neutrophils # Showcase Maker 12/15/17 12:08 PT 12.7 Sec. (12.2-14.9) 12/15/17 10:51 INR 0.91 (0.87-1.13) 12/15/17 10:51 APTT 20.0 Sec. (24.2-36.6) L 12/15/17 10:51 Sodium 145 mmol/L (137-145) 12/15/17 10:51 Potassium 4.5 mmol/L (3.6-5.0) 12/15/17 10:51 Chloride 109.0 mmol/L (98-107) H 12/15/17 10:51 Carbon Dioxide 21 mmol/L (22-30) L 12/15/17 10:51 Anion Gap 20 mmol/L 12/15/17 10:51 BUN 24 mg/dL (7-17) H 12/15/17 10:51 Creatinine 1.0 mg/dL (0.7-1.2) 12/15/17 10:51 Estimated GFR > 60 ml/min 12/15/17 10:51 BUN/Creatinine Ratio 24 % 12/15/17 10:51 Glucose 100 mg/dL (65-100) 12/15/17 10:51 Lactic Acid 1.00 mmol/L (0.7-2.0) 12/15/17 10:51 Calcium 9.0 mg/dL (8.4-10.2) 12/15/17 10:51 Total Bilirubin 0.20 mg/dL (0.1-1.2) 12/15/17 10:51 Direct Bilirubin < 0.2 mg/dL (0-0.2) 12/15/17 10:51 Indirect Bilirubin 0.0 mg/dL 12/15/17 10:51 AST 20 units/L (5-40) 12/15/17 10:51 ALT 16 units/L (7-56) 12/15/17 10:51 Alkaline Phosphatase 73 units/L (35-129) 12/15/17 10:51 Ammonia 12.0 umol/L (25-60) L 12/15/17 12:49 Total Creatine Kinase 63 units/L (30-135) 12/15/17 10:51 Troponin T < 0.010 ng/mL (0.00-0.029) 12/15/17 10:51 NT-Pro-B Natriuret Pep 201.7 pg/mL (0-900) 12/15/17 10:51 Total Protein 6.9 g/dL (6.3-8.2) 12/15/17 10:51 Albumin 3.8 g/dL (3.9-5) L 12/15/17 10:51 Albumin/Globulin Ratio 1.2 % 12/15/17 10:51 TSH 0.528 mlU/mL (0.270-4.200) 12/15/17 10:51 Urine Color Yellow (Yellow) 12/15/17 10:38 Urine Turbidity Clear (Clear) 12/15/17 10:38 Urine pH 6.0 (5.0-7.0) 12/15/17 10:38 Ur Specific [place] 1.020 (1.003-1.030) 12/15/17 10:38 Urine Protein <15 mg/dl mg/dL (Negative) 12/15/17 10:38 Urine Glucose (UA) Neg mg/dL (Negative) 12/15/17 10:38 Urine Ketones Neg mg/dL (Negative) 12/15/17 10:38 Urine Blood Neg (Negative) 12/15/17 10:38 Urine Nitrite Pos (Negative) 12/15/17 10:38 Urine Bilirubin Neg (Negative) 12/15/17 10:38 Urine Urobilinogen < 2.0 mg/dL (<2.0) 12/15/17 10:38 Ur Leukocyte Esterase Sm (Negative) 12/15/17 10:38 Urine WBC (Auto) 9.0 /HPF (0.0-6.0) H 12/15/17 10:38 Urine RBC (Auto) 1.0 /HPF (0.0-6.0) 12/15/17 10:38 U Epithel Cells (Auto) < 1.0 /HPF (0-13.0) 12/15/17 10:38 Urine Bacteria (Auto) 2+ /HPF (Negative) 12/15/17 10:38 Urine Mucus Few /HPF 12/15/17 10:38 Salicylates < 0.3 mg/dL (2.8-20.0) L 12/15/17 10:51 Urine Opiates Screen Presumptive negative 12/15/17 10:38 Urine Methadone Screen Presumptive negative 12/15/17 10:38 Acetaminophen < 5.0 ug/mL (10.0-30.0) L 12/15/17 10:51 Ur Barbiturates Screen Presumptive negative 12/15/17 10:38 Ur Phencyclidine Scrn Presumptive negative 12/15/17 10:38 Ur Amphetamines Screen Presumptive negative 12/15/17 10:38 U Benzodiazepines Scrn Presumptive negative 12/15/17 10:38 Urine Cocaine Screen Presumptive negative 12/15/17 10:38 U Marijuana (THC) Screen Presumptive negative 12/15/17 10:38 Drugs of Abuse Note Disclamer 12/15/17 10:38 Short CBC 12/15/17 Range/Units 12:08 WBC 6.0 (4.5-11.0) K/mm3 Hgb 11.2 (10.1-14.3) gm/dl Hct 33.4 (30.3-42.9) % Plt Count 242 (140-440) K/mm3 BMP 12/15/17 10:51 Sodium 145 Potassium 4.5 Chloride 109.0 H Carbon Dioxide 21 L BUN 24 H Creatinine 1.0 Glucose 100 Calcium 9.0 Cardiac Enzymes 12/15/17 Range/Units 10:51 Total Creatine Kinase 63 (30-135) units/L Troponin T < 0.010 (0.00-0.029) ng/mL Liver Function 12/15/17 Range/Units 10:51 Total Bilirubin 0.20 (0.1-1.2) mg/dL Direct Bilirubin < 0.2 (0-0.2) mg/dL AST 20 (5-40) units/L ALT 16 (7-56) units/L Alkaline Phosphatase 73 (35-129) units/L Albumin 3.8 L (3.9-5) g/dL Urine 12/15/17 Range/Units 10:38 Urine Color Yellow (Yellow) Urine pH 6.0 (5.0-7.0) Ur Specific [place] 1.020 (1.003-1.030) Urine Protein <15 mg/dl (Negative) mg/dL Urine Glucose (UA) Neg (Negative) mg/dL - Imaging and Cardiology Chest x-ray: report reviewed (no acute findings) Assessment and Plan Advance Directives: Yes (full code) VTE prophylaxis?: Chemical Plan of care discussed with patient/family: Yes - Patient Problems (1) Acute encephalopathy Current Visit: Yes Status: Acute Plan to address problem: Secondary to early dementia and psychosis. Will get mental health consult for paranoia and agitation (2) Dementia Current Visit: Yes Status: Chronic Qualifiers: Dementia type: Alzheimer's disease Alzheimer's disease onset: early-onset Dementia behavioral disturbance: with behavioral disturbance Qualified Code( s): G30.0 - Alzheimer's disease with early onset; F02.81 - Dementia in other diseases classified elsewhere with behavioral disturbance Plan to address problem: Patient initiated on Aricept initially and Namenda later (3) UTI (urinary tract infection) Current Visit: Yes Status: Acute Qualifiers: Urinary tract infection type: acute cystitis Hematuria presence: without hematuria Qualified Code(s): N30.00 - Acute cystitis without hematuria Plan to address problem: 9 WBCs in the urine. Check urine cultures. Rocephin initiated (4) Insulin dependent diabetes mellitus Current Visit: Yes Status: Chronic Plan to address problem: Continue home insulin and coverage Check hemoglobin A1c (5) Hyperlipidemia Current Visit: Yes Status: Chronic Qualifiers: Hyperlipidemia type: mixed hyperlipidemia Qualified Code(s): E78.2 - Mixed hyperlipidemia Plan to address problem: Continue statins (6) Hypertension Current Visit: Yes Status: Chronic Qualifiers: Hypertension type: essential hypertension Qualified Code(s): I10 - Essential (primary) hypertension Plan to address problem: Continue antihypertensives in the form of lisinopril 10 mg once a day (7) Depression Current Visit: Yes Status: Chronic Qualifiers: Depression Type: unspecified Qualified Code(s): F32.9 - Major depressive disorder, single episode, unspecified Plan to address problem: on Celexa (8) Peripheral neuropathy Current Visit: Yes Status: Chronic Qualifiers: Peripheral neuropathy type: polyneuropathy, unspecified Qualified Code(s): G62.9 - Polyneuropathy, unspecified Plan to address problem: On gabapentin 803 times a day (9) Malnutrition Current Visit: Yes Status: Chronic Qualifiers: Protein-calorie malnutrition severity: mild Plan to address problem: Dietitian consult requested for oral supplements (10) Discharge planning issues Current Visit: Yes Status: Acute Plan to address problem: Patient may need assisted facility Patient lives alone and cannot take care of herself. She has paranoia and suicidal ideations etc. etc. (11) DVT prophylaxis Current Visit: Yes Status: Acute Plan to address problem: On subcutaneous heparin
[2017-12-15] MEDS ORDERED: BACTRIM DS PO SCH (16:00)
[2017-12-15] MEDS: celeXA PO SCH (16:08)
[2017-12-15] MEDS: ZESTRIL PO SCH (16:09)
[2017-12-15] MEDS: HumaLOG SUB-Q SCH ×2 (17:05→22:57)
[2017-12-15] MEDS ORDERED: NON-FORMULARY (Gabapentin [Neurontin] 800 MG) PO SCH (20:00)
[2017-12-15] MEDS: NEURONTIN PO SCH (20:56)
[2017-12-15] MEDS ORDERED: MACROBID PO SCH (22:00)
[2017-12-15] MEDS: LANTUS SUB-Q SCH (22:56)
[2017-12-16] MEDS: NACL 0.9% 1000 ML 1,000 ML IV SCH ×2 (04:08→19:28)
[2017-12-16] MEDS: LASIX PO SCH (06:51)
[2017-12-16] MEDS: HumaLOG SUB-Q SCH ×4 (08:09→22:41)
[2017-12-16] MEDS: NEURONTIN PO SCH ×3 (09:25→19:27)
[2017-12-16] MEDS: ZESTRIL PO SCH (09:28)
[2017-12-16] MEDS: celeXA PO SCH (09:29)
[2017-12-16] MEDS: cefTRIAXone 1 GM in NACL 0.9% 20 ML IV SCH (09:34)
[2017-12-16] MEDS ORDERED: NON-FORMULARY (Rosuvastatin (Nf) 20 MG) PO SCH (10:00)
--- NOTE | 2017-12-16 13:29 | Progress Note ---
Assessment and Plan Assessment and plan: Patient is a 67-year-old woman with history of dementia with behavioral disorder , insulin-dependent diabetes mellitus, dyslipidemia, peripheral neuropathy, schizophrenia, depression and recurrent UTI will presents with shortness of breath and altered mental status. She was found to have another UTI. Portable chest x-ray unremarkable -Acute encephalopathy due to infection: Treat the infection -UTI: Treat with antibiotics, IV fluids -Bradycardia: Continue to monitor -Hypoglycemia: Treat with dextrose, added a diet -Type 2 diabetes mellitus on insulin: Adjust insulin, add sliding scale -GI/DVT prophylaxis reviewed Full code Disposition: Patient states she is in process of moving to [place]; therefore , declined placement. Once blood sugar and heart rate stabilized History Interval history: Patient was seen and examined. Follow-up on current diagnosis of altered mental status shortness of breath which is improved. Overnight uneventful. Patient denies any chest pain, nausea/vomiting or severe headaches. Imaging, nursing note, chart, labs and old chart reviewed. Discussed with patient. Hospitalist Physical - Physical exam Narrative exam: GEN: Thin frail BMI 20.7 NAD, AWAKE, ALERT, ORIENTATED 3 HEENT: NCAT, EOMI, PERRL, OP Clear NECK: supple, no adenopathy, no thyromegaly, no JVD CVS/HEART: RRR, NORMAL S1S2, pulses present bilaterally CHEST/LUNGS: CTA B, Symmetrical chest expansion, good air entry bilaterally GI/Abdomen: soft, NTND, good bowel sounds, no guarding or rebound /Bladder: Positive suprapubic tenderness, no CVA or paraspinal tenderness EXT/Skin: no c/c/e, no obvious rash MSK: FROM x 4 Neuro: CN 2-12 grossly intact, no new focal deficits Psych: calm - Constitutional Vitals: Temp Pulse Resp BP Pulse Ox 98.8 F 72 18 143/52 100 12/16/17 09:31 12/16/17 09:31 12/16/17 09:31 12/16/17 09:31 12/16/17 09:31 General appearance: Present: no acute distress, well-nourished Results - Labs CBC & Chem 7: 12/15/17 12:08 12/15/17 10:51 Labs: Laboratory Last Values WBC 6.0 K/mm3 (4.5-11.0) 12/15/17 12:08 RBC 3.62 M/mm3 (3.65-5.03) L 12/15/17 12:08 Hgb 11.2 gm/dl (10.1-14.3) 12/15/17 12:08 Hct 33.4 % (30.3-42.9) 12/15/17 12:08 MCV 92 fl (79-97) 12/15/17 12:08 MCH 31 pg (28-32) 12/15/17 12:08 MCHC 34 % (30-34) 12/15/17 12:08 RDW 14.4 % (13.2-15.2) 12/15/17 12:08 Plt Count 242 K/mm3 (140-440) 12/15/17 12:08 Lymph % (Auto) [employer] Roller 12/15/17 12:08 [place] % (Auto) [employer] 12/15/17 12:08 Eos % (Auto) [place] [employer] 12/15/17 12:08 Baso % (Auto) [place] [employer] 12/15/17 12:08 Lymph # [place] [employer] 12/15/17 12:08 [place] # [place] Roller 12/15/17 12:08 Eos # [place] [employer] Rol[employer] 12/15/17 12:08 Baso # [place] [employer] 12/15/17 12:08 Seg Neutrophils % [place] [employer] 12/15/17 12:08 Seg Neutrophils # [place] [employer] 12/15/17 12:08 PT 12.7 Sec. (12.2-14.9) 12/15/17 10:51 INR 0.91 (0.87-1.13) 12/15/17 10:51 APTT 20.0 Sec. (24.2-36.6) L 12/15/17 10:51 Sodium 145 mmol/L (137-145) 12/15/17 10:51 Potassium 4.5 mmol/L (3.6-5.0) 12/15/17 10:51 Chloride 109.0 mmol/L (98-107) H 12/15/17 10:51 Carbon Dioxide 21 mmol/L (22-30) L 12/15/17 10:51 Anion Gap 20 mmol/L 12/15/17 10:51 BUN 24 mg/dL (7-17) H 12/15/17 10:51 Creatinine 1.0 mg/dL (0.7-1.2) 12/15/17 10:51 Estimated GFR > 60 ml/min 12/15/17 10:51 BUN/Creatinine Ratio 24 % 12/15/17 10:51 Glucose 100 mg/dL (65-100) 12/15/17 10:51 POC Glucose 96 (70-105) 12/16/17 12:12 Hemoglobin A1c 5.5 % (4-6) 12/16/17 04:35 Lactic Acid 1.00 mmol/L (0.7-2.0) 12/15/17 10:51 Calcium 9.0 mg/dL (8.4-10.2) 12/15/17 10:51 Total Bilirubin 0.20 mg/dL (0.1-1.2) 12/15/17 10:51 Direct Bilirubin < 0.2 mg/dL (0-0.2) 12/15/17 10:51 Indirect Bilirubin 0.0 mg/dL 12/15/17 10:51 AST 20 units/L (5-40) 12/15/17 10:51 ALT 16 units/L (7-56) 12/15/17 10:51 Alkaline Phosphatase 73 units/L (35-129) 12/15/17 10:51 Ammonia 12.0 umol/L (25-60) L 12/15/17 12:49 Total Creatine Kinase 63 units/L (30-135) 12/15/17 10:51 Troponin T < 0.010 ng/mL (0.00-0.029) 12/15/17 10:51 NT-Pro-B Natriuret Pep 201.7 pg/mL (0-900) 12/15/17 10:51 Total Protein 6.9 g/dL (6.3-8.2) 12/15/17 10:51 Albumin 3.8 g/dL (3.9-5) L 12/15/17 10:51 Albumin/Globulin Ratio 1.2 % 12/15/17 10:51 TSH 0.528 mlU/mL (0.270-4.200) 12/15/17 10:51 Urine Color Yellow (Yellow) 12/15/17 10:38 Urine Turbidity Clear (Clear) 12/15/17 10:38 Urine pH 6.0 (5.0-7.0) 12/15/17 10:38 Ur Specific [place] 1.020 (1.003-1.030) 12/15/17 10:38 Urine Protein <15 mg/dl mg/dL (Negative) 12/15/17 10:38 Urine Glucose (UA) Neg mg/dL (Negative) 12/15/17 10:38 Urine Ketones Neg mg/dL (Negative) 12/15/17 10:38 Urine Blood Neg (Negative) 12/15/17 10:38 Urine Nitrite Pos (Negative) 12/15/17 10:38 Urine Bilirubin Neg (Negative) 12/15/17 10:38 Urine Urobilinogen < 2.0 mg/dL (<2.0) 12/15/17 10:38 Ur Leukocyte Esterase Sm (Negative) 12/15/17 10:38 Urine WBC (Auto) 9.0 /HPF (0.0-6.0) H 12/15/17 10:38 Urine RBC (Auto) 1.0 /HPF (0.0-6.0) 12/15/17 10:38 U Epithel Cells (Auto) < 1.0 /HPF (0-13.0) 12/15/17 10:38 Urine Bacteria (Auto) 2+ /HPF (Negative) 12/15/17 10:38 Urine Mucus Few /HPF 12/15/17 10:38 Salicylates < 0.3 mg/dL (2.8-20.0) L 12/15/17 10:51 Urine Opiates Screen Presumptive negative 12/15/17 10:38 Urine Methadone Screen Presumptive negative 12/15/17 10:38 Acetaminophen < 5.0 ug/mL (10.0-30.0) L 12/15/17 10:51 Ur Barbiturates Screen Presumptive negative 12/15/17 10:38 Ur Phencyclidine Scrn Presumptive negative 12/15/17 10:38 Ur Amphetamines Screen Presumptive negative 12/15/17 10:38 U Benzodiazepines Scrn Presumptive negative 12/15/17 10:38 Urine Cocaine Screen Presumptive negative 12/15/17 10:38 U Marijuana (THC) Screen Presumptive negative 12/15/17 10:38 Drugs of Abuse Note Disclamer 12/15/17 10:38
[2017-12-16] MEDS: LANTUS SUB-Q SCH (22:41)
[2017-12-17] MEDS: TYLENOL PO PRN ×3 (03:14→23:28)
[2017-12-17 04:52] LABS: Hematocrit 29.6 % (30.3-42.9); Hemoglobin 10.1 gm/dl (10.1-14.3); Mean Corpuscular HGB Conc 34 % (30-34); Mean Corpuscular Hemoglobin 31 pg (28-32); Mean Corpuscular Volume 91 fl (79-97); Platelet Count 190 K/mm3 (140-440); Red Blood Count 3.25 M/mm3 (3.65-5.03); Red Cell Distribution Width 14.4 % (13.2-15.2)
[2017-12-17 05:13] LABS: BUN/Creatinine Ratio 20; Blood Urea Nitrogen 16 mg/dL (7-17); Hemolysis Index 2
[2017-12-17] MEDS: LASIX PO SCH (05:32)
[2017-12-17] MEDS: HumaLOG SUB-Q SCH ×4 (07:57→23:29)
[2017-12-17] MEDS: NEURONTIN PO SCH ×3 (08:47→21:22)
[2017-12-17] MEDS: NACL 0.9% 1000 ML 1,000 ML IV SCH (08:48)
[2017-12-17] MEDS: ZESTRIL PO SCH (09:00)
[2017-12-17] MEDS: celeXA PO SCH (09:10)
[2017-12-17] MEDS: cefTRIAXone 1 GM in NACL 0.9% 20 ML IV SCH (09:11)
--- NOTE | 2017-12-17 10:17 | Progress Note ---
Assessment and Plan Assessment and plan: -Acute encephalopathy due to infection: Treat the infection. Urine cultures are negative. Patient also with underlying Alzheimer's dementia. -UTI: Treat with antibiotics, IV fluids -Bradycardia: Continue to monitor, follow-up echocardiogram -Hypoglycemia: Resolved -Type 2 diabetes mellitus on insulin: Adjust insulin, add sliding scale -Alzheimer's dementia. Continue supportive care. -GI/DVT prophylaxis reviewed -Disposition. Anticipate discharge in a.m. Full code History Interval history: Patient is somnolent and lethargic. Hospitalist Physical - Constitutional Vitals: Temp Pulse Resp BP Pulse Ox 97.8 F 50 L 18 164/52 100 12/17/17 08:00 12/17/17 09:00 12/17/17 08:42 12/17/17 09:00 12/17/17 08:00 General appearance: Present: no acute distress, well-nourished - EENT Eyes: Present: PERRL, EOM intact ENT: hearing intact, clear oral mucosa, dentition normal - Neck Neck: Present: supple, normal ROM - Respiratory Respiratory effort: normal Respiratory: bilateral: CTA - Cardiovascular Rhythm: regular Heart Sounds: Present: S1 & S2. Absent: gallop, rub - Extremities Extremities: no ischemia, No edema, Full ROM - Abdominal General gastrointestinal: soft, non-tender, non-distended, normal bowel sounds - Integumentary Integumentary: Present: clear, warm, dry - Neurologic Neurologic: CNII-XII intact, moves all extremities Results - Labs CBC & Chem 7: 12/17/17 04:31 12/17/17 04:31 Labs: Laboratory Last Values WBC 6.0 K/mm3 (4.5-11.0) 12/17/17 04:31 RBC 3.25 M/mm3 (3.65-5.03) L 12/17/17 04:31 Hgb 10.1 gm/dl (10.1-14.3) 12/17/17 04:31 Hct 29.6 % (30.3-42.9) L 18 04:31 MCV 91 fl (79-97) 18 04:31 MCH 31 pg (28-32) 12/17/17 04:31 MCHC 34 % (30-34) 12/17/17 04:31 RDW 14.4 % (13.2-15.2) 12/17/17 04:31 Plt Count 190 K/mm3 (140-440) 12/17/17 04:31 Lymph % (Auto) [employer] Maker 12/15/17 12:08 [place] % (Auto) [employer] Maker 12/15/17 12:08 Eos % (Auto) [employer] Maker 12/15/17 12:08 Baso % (Auto) [employer] Maker 12/15/17 12:08 Lymph # [employer] Maker 12/15/17 12:08 [place] # Motor [employer] Generator Brush Maker 12/15/17 12:08 Eos # [employer] Maker 12/15/17 12:08 Baso # [employer] Maker 12/15/17 12:08 Seg Neutrophils % [employer] 12/15/17 12:08 Seg Neutrophils # [employer] 12/15/17 12:08 PT 12.7 Sec. (12.2-14.9) 12/15/17 10:51 INR 0.91 (0.87-1.13) 12/15/17 10:51 APTT 20.0 Sec. (24.2-36.6) L 12/15/17 10:51 Sodium 146 mmol/L (137-145) H 12/17/17 04:31 Potassium 3.8 mmol/L (3.6-5.0) 12/17/17 04:31 Chloride 111.7 mmol/L (98-107) H 12/17/17 04:31 Carbon Dioxide 23 mmol/L (22-30) 12/17/17 04:31 Anion Gap 15 mmol/L 12/17/17 04:31 BUN 16 mg/dL (7-17) 12/17/17 04:31 Creatinine 0.8 mg/dL (0.7-1.2) 12/17/17 04:31 Estimated GFR > 60 ml/min 12/17/17 04:31 BUN/Creatinine Ratio 20 % 12/17/17 04:31 Glucose 80 mg/dL (65-100) 12/17/17 04:31 POC Glucose 121 (70-105) H 12/17/17 07:46 Hemoglobin A1c 5.5 % (4-6) 12/16/17 04:35 Lactic Acid 1.00 mmol/L (0.7-2.0) 12/15/17 10:51 Calcium 8.0 mg/dL (8.4-10.2) L 12/17/17 04:31 Total Bilirubin 0.20 mg/dL (0.1-1.2) 12/15/17 10:51 Direct Bilirubin < 0.2 mg/dL (0-0.2) 12/15/17 10:51 Indirect Bilirubin 0.0 mg/dL 12/15/17 10:51 AST 20 units/L (5-40) 12/15/17 10:51 ALT 16 units/L (7-56) 12/15/17 10:51 Alkaline Phosphatase 73 units/L (35-129) 12/15/17 10:51 Ammonia 12.0 umol/L (25-60) L 12/15/17 12:49 Total Creatine Kinase 63 units/L (30-135) 12/15/17 10:51 Troponin T < 0.010 ng/mL (0.00-0.029) 12/15/17 10:51 NT-Pro-B Natriuret Pep 201.7 pg/mL (0-900) 12/15/17 10:51 Total Protein 6.9 g/dL (6.3-8.2) 12/15/17 10:51 Albumin 3.8 g/dL (3.9-5) L 12/15/17 10:51 Albumin/Globulin Ratio 1.2 % 12/15/17 10:51 TSH 0.528 mlU/mL (0.270-4.200) 12/15/17 10:51 Urine Color Yellow (Yellow) 12/15/17 10:38 Urine Turbidity Clear (Clear) 12/15/17 10:38 Urine pH 6.0 (5.0-7.0) 12/15/17 10:38 Ur Specific [place] 1.020 (1.003-1.030) 12/15/17 10:38 Urine Protein <15 mg/dl mg/dL (Negative) 12/15/17 10:38 Urine Glucose (UA) Neg mg/dL (Negative) 12/15/17 10:38 Urine Ketones Neg mg/dL (Negative) 12/15/17 10:38 Urine Blood Neg (Negative) 12/15/17 10:38 Urine Nitrite Pos (Negative) 12/15/17 10:38 Urine Bilirubin Neg (Negative) 12/15/17 10:38 Urine Urobilinogen < 2.0 mg/dL (<2.0) 12/15/17 10:38 Ur Leukocyte Esterase Sm (Negative) 12/15/17 10:38 Urine WBC (Auto) 9.0 /HPF (0.0-6.0) H 12/15/17 10:38 Urine RBC (Auto) 1.0 /HPF (0.0-6.0) 12/15/17 10:38 U Epithel Cells (Auto) < 1.0 /HPF (0-13.0) 12/15/17 10:38 Urine Bacteria (Auto) 2+ /HPF (Negative) 12/15/17 10:38 Urine Mucus Few /HPF 12/15/17 10:38 Salicylates < 0.3 mg/dL (2.8-20.0) L 12/15/17 10:51 Urine Opiates Screen Presumptive negative 12/15/17 10:38 Urine Methadone Screen Presumptive negative 12/15/17 10:38 Acetaminophen < 5.0 ug/mL (10.0-30.0) L 12/15/17 10:51 Ur Barbiturates Screen Presumptive negative 12/15/17 10:38 Ur Phencyclidine Scrn Presumptive negative 12/15/17 10:38 Ur Amphetamines Screen Presumptive negative 12/15/17 10:38 U Benzodiazepines Scrn Presumptive negative 12/15/17 10:38 Urine Cocaine Screen Presumptive negative 12/15/17 10:38 U Marijuana (THC) Screen Presumptive negative 12/15/17 10:38 Drugs of Abuse Note Disclamer 12/15/17 10:38
[2017-12-17] MEDS: LANTUS SUB-Q SCH (23:30)
[2017-12-18] MEDS: NACL 0.9% 1000 ML 1,000 ML IV SCH (04:12)
[2017-12-18] MEDS: LASIX PO SCH (06:24)
[2017-12-18] MEDS: HumaLOG SUB-Q SCH ×3 (08:00→17:05)
--- NOTE | 2017-12-18 08:31 | Discharge Summary ---
Providers - Providers Date of Admission: 12/15/17 14:26 Date of discharge: 12/18/17 Attending physician: ELIOT HERMAN 12/15/17 20:36 Consult to Case Management [CONS] Routine Services Needed at Discharge: Roller Maker Notified:: eulalia Comment:: [facility] facility placement 12/15/17 20:37 Consult to Dietitian/Nutrition [CONS] Routine Physician Instructions: Reason For Exam: malnutrition Reason for Consult: Pt needs oral supplement 12/15/17 20:41 Consult to Mental Health [CONS] Routine Reason For Exam: early dementia and hallucinations Place consult to:: alesha Notified:: alesha Phone number called:: [phone] Primary care physician: EGG CASER Hospitalization Reason for admission: AMS Condition: Stable Hospital course: 67-year-old -Citizen Of [place] female with history of dementia insulin-dependent diabetes recurrent urinary tract infections and 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 No fever no chills. No cough. Patient has been admitted before with hallucinosis and suicidal ideation. Patient apparently has early dementia. Patient also has a diagnosis of paranoid schizophrenia with depression. Patient apparently lives alone. As per the family patient is paranoid. No chest pain no palpitations no diaphoresis. No recent travel. No dysuria. Patient was admitted with diagnosis of toxic encephalopathy secondary to recurrent UTI. Patient was found to have mild UTI with WBC of 9.0 on urinalysis. Urine culture was found to be negative. Other issues during hospital stay included bradycardia. Echocardiogram was obtained which revealed mild concentric left ventricular hypertrophy and an EF of 50-55%. No other acute findings. Patient remained asymptomatic during the hospital stay. Patient has a previous diagnosis with sinus bradycardia and is followed by cardiology. Patient was evaluated by psychiatry. Patient denied any suicidal or homicidal ideations. Psychiatry felt the patient did not meet criteria for inpatient at this time. Patient reportedly has some difficulty with performing ADLs but refused any assistance. Dr. Hbuer reported that she refuses placement and case management reports She stated she was not receiving any services in the home and is not interested in being referred for any home services. Therefore, recommendations were for the patient to discharge home with her daughter. Patient should follow varnish maker helper as an outpatient. Dedicated discharge time 35 minutes. Disposition: TO HOME OR SELFCARE Time spent for discharge: 34 - Discharge Diagnoses (1) Acute encephalopathy Status: Acute (2) Paranoid schizophrenia Status: Acute (3) UTI (urinary tract infection) Status: Acute Qualifiers: Urinary tract infection type: acute cystitis Hematuria presence: without hematuria Qualified Code(s): N30.00 - Acute cystitis without hematuria (4) Dementia Status: Chronic Qualifiers: Dementia type: Alzheimer's disease Alzheimer's disease onset: early-onset Dementia behavioral disturbance: with behavioral disturbance Qualified Code( s): G30.0 - Alzheimer's disease with early onset; F02.81 - Dementia in other diseases classified elsewhere with behavioral disturbance (5) Depression Status: Chronic Qualifiers: Depression Type: unspecified Qualified Code(s): F32.9 - Major depressive disorder, single episode, unspecified (6) Bradycardia Status: Acute Core Measure Documentation - Palliative Care Palliative Care/ Comfort Measures: Not Applicable - Core Measures Any of the following diagnoses?: none Exam - Constitutional Vitals: Temp Pulse Resp BP Pulse Ox 98.6 F 50 L 20 164/65 99 12/17/17 20:20 12/17/17 20:56 12/17/17 20:20 12/17/17 20:20 12/17/17 22:00 General appearance: Present: no acute distress, well-nourished - EENT Eyes: Present: PERRL ENT: hearing intact, clear oral mucosa - Neck Neck: Present: supple, normal ROM - Respiratory Respiratory effort: normal Respiratory: bilateral: CTA - Cardiovascular Heart Sounds: Present: S1 & S2. Absent: rub, click - Extremities Extremities: pulses symmetrical, No edema Peripheral Pulses: within normal limits - Abdominal General gastrointestinal: Present: soft, non-tender, non-distended, normal bowel sounds Female genitourinary: Present: normal - Integumentary Integumentary: Present: clear, warm, dry - Musculoskeletal Musculoskeletal: gait normal, strength equal bilaterally - Psychiatric Psychiatric: appropriate mood/affect, intact judgment & insight - Neurologic Neurologic: CNII-XII intact, moves all extremities Plan Activity: advance as tolerated Weight Bearing Status: Weight Bear as Tolerated Follow up with: PRIMARY MD RUTH [Primary Care Provider] - 3-5 Days KANIKA MORALES MD [Staff Physician] - 7 Days Prescriptions: AtorvaSTATin [Lipitor] 40 mg PO QHS #30 tablet Citalopram [Celexa] 20 mg PO DAILY #30 tablet Furosemide [Lasix TAB] 20 mg PO QDAY #30 tablet Gabapentin [Neurontin] 800 mg PO TID #90 capsule Lisinopril [Zestril TAB] 10 mg PO QDAY #30 tablet Sulfamethoxazole/Trimethoprim [Bactrim DS TAB] 1 each PO BID #6 tablet
[2017-12-18] MEDS: NEURONTIN PO SCH ×2 (09:40→14:27)
[2017-12-18] MEDS: celeXA PO SCH (10:22)
[2017-12-18] MEDS: ZESTRIL PO SCH (10:27)
[2017-12-18] MEDS: cefTRIAXone 1 GM in NACL 0.9% 20 ML IV SCH (10:31)
[2017-12-18 15:13] VITALS: BP 145/61
== END 2017-12-18 20:35 | disposition home or self-care (01) | DRG 689 ==
LOC: ED 08:47 → 2B-ACE 14:26
PROVIDERS: ADMIT Internal Medicine; ATTEND Hospitalist
DX: N39.0 Urinary tract infection, site not specified (principal); G92 Toxic encephalopathy; F20.0 Paranoid schizophrenia; E46 Unspecified protein-calorie malnutrition; F02.81 Dementia in other diseases classified elsewhere, unspecified severity, with behavioral disturbance; Z68.20 Body mass index [BMI] 20.0-20.9, adult; F32.9 Major depressive disorder, single episode, unspecified; E78.00 Pure hypercholesterolemia, unspecified; Z90.710 Acquired absence of both cervix and uterus; Z90.49 Acquired absence of other specified parts of digestive tract; Z79.899 Other long term (current) drug therapy; E11.42 Type 2 diabetes mellitus with diabetic polyneuropathy; E11.649 Type 2 diabetes mellitus with hypoglycemia without coma; G30.9 Alzheimer's disease, unspecified
CPT/HCPCS: 36415; 71045; 80048; 80074; 80307; 80320; 81001; 82140; 82550; 82962; 83036; 83880; 84443; 84484; 85025; 85027; 85610; 85730; 87086; 93306; 96374; A9270-GY; G0480; J0696; J1815; J7030

== ENCOUNTER 2018-06-12 05:29 | Emergency (ER) | payer MEDICARE ==
[2018-06-12 06:10] LABS: Basophils % (Auto) 0.5 % (0.0-1.8); Eosinophils % (Auto) 0.8 % (0.0-4.3); Hematocrit 35.2 % (30.3-42.9); Hemoglobin 11.8 gm/dl (10.1-14.3); Lymphocytes # (Auto) 1.7 K/mm3 (1.2-5.4); Mean Corpuscular HGB Conc 34 % (30-34); Mean Corpuscular Hemoglobin 32 pg (28-32); Mean Corpuscular Volume 94 fl (79-97); Monocytes # (Auto) 0.3 K/mm3 (0.0-0.8); Monocytes % (Auto) 5.5 % (0.0-7.3); Platelet Count 199 K/mm3 (140-440); Red Blood Count 3.75 M/mm3 (3.65-5.03); Red Cell Distribution Width 13.9 % (13.2-15.2)
[2018-06-12 06:31] LABS: BUN/Creatinine Ratio 16; Blood Urea Nitrogen 13 mg/dL (7-17); Calcium 9.1 mg/dL (8.4-10.2); Hemolysis Index 4
--- NOTE | 2018-06-12 06:36 | Emergency Department Report ---
ED General Adult HPI - General Chief complaint: Urogenital-Female Stated complaint: FREQUENT URINATION Time Seen by Provider: 06/12/18 06:27 Source: patient, EMS (ems notes not available at time of chart dictation), RN notes reviewed, old records reviewed Mode of arrival: Stretcher Limitations: Physical Limitation - History of Present Illness Initial comments: This is a 68-year-old female. The patient is not known to this provider previously. Past medical history includes dementia, diabetes, recurrent urinary tract infections, presumed schizophrenia/paranoia. Patient currently lives by herself. Patient presents to the ER with a complaint of urinary frequency. This is constant for the past 2 days. It is painless. It does not radiate anywhere. He does not have exacerbating or relieving factors. The patient denies headache , neck pain, chest pain, abdominal pain. She indicates chronic paralumbar lower back pain, denies focal extremity weakness, numbness. She apparently has a history of overactive bladder as well. Patient indicates that she lives by herself, and walks with a walker. -: Gradual Consistency: constant Improves with: none Worsens with: none Associated Symptoms: loss of appetite, malaise, weakness. denies: confusion, chest pain, cough, diaphoresis, fever/chills, headaches, nausea/vomiting, rash, seizure, shortness of breath, syncope - Related Data Home Medications Medication Instructions Recorded Confirmed Last Taken Norton-3 Fatty Acids [Norton-3] 1 tab PO DAILY 01/13/14 12/15/17 12/15/17 08:00 Rosuvastatin (Nf) [Crestor] 20 mg PO DAILY 01/13/14 12/15/17 12/15/17 08:00 Insulin Glargine,Hum.rec.anlog 12 unit SQ QHS 04/21/15 12/15/17 Unknown [Lantus] Insulin Lispro [HumaLOG VIAL] 0 units SQ AC 06/03/17 12/15/17 Unknown Previous Rx's Medication Instructions Recorded Last Taken Type Gabapentin [Neurontin] 800 mg PO TID #30 05/14/14 12/15/17 08:00 Rx Nitrofurantoin [place]/M-Cryst 100 mg PO Q12HR #10 capsule 12/29/16 12/15/17 08:00 Rx [Macrobid CAP] Fluconazole [Diflucan TAB] 150 mg PO ONCE #2 tablet 05/03/17 Unknown Rx Nitrofurantoin [place]/M-Cryst 100 mg PO Q12HR #14 capsule 06/06/17 12/15/17 08:00 Rx [Macrobid CAP] metroNIDAZOLE [Flagyl TAB] 500 mg PO Q12HR #14 tab 06/17/17 12/15/17 08:00 Rx AtorvaSTATin [Lipitor] 40 mg PO QHS #30 tablet 12/18/17 Unknown Rx Citalopram [Celexa] 20 mg PO DAILY #30 tablet 12/18/17 Unknown Rx Furosemide [Lasix TAB] 20 mg PO QDAY #30 tablet 12/18/17 Unknown Rx Gabapentin [Neurontin] 800 mg PO TID #90 capsule 12/18/17 Unknown Rx Lisinopril [Zestril TAB] 10 mg PO QDAY #30 tablet 12/18/17 Unknown Rx Lispro Insulin [Humalog] 0 unit SUB-Q ACHS units 12/18/17 Unknown Rx Sulfamethoxazole/Trimethoprim 1 each PO BID #6 tablet 12/18/17 Unknown Rx [Bactrim DS TAB] Allergies Allergy/AdvReac Type Severity Reaction Status Date / Time Iodinated Contrast- Oral and Allergy Anaphylaxis Verified 12/15/17 13:00 IV Dye [Iodinated Contrast Media - IV Dye] ED Review of Systems ROS: Stated complaint: FREQUENT URINATION Other details as noted in HPI ED Past Medical Hx - Past Medical History Previous Medical History?: Yes Hx Hypertension: Yes Hx Heart Attack/AMI: No Hx Congestive Heart Failure: No Hx Diabetes: Yes Hx Deep Vein Thrombosis: No Hx Liver Disease: No Hx Renal Disease: Yes (history of renal insufficiency) Hx Arthritis: No Hx Kidney Stones: No Hx Psychiatric Treatment: Yes (depression paranoid schizophrenia) Additional medical history: HIGH CHOLESTEROL, neuropathy, overactive bladder - Surgical History Past Surgical History?: Yes Hx Coronary Stent: No Hx Open Heart Surgery: No Hx Pacemaker: No Hx Internal Defibrillator: No Hx Cholecystectomy: Yes Hx Appendectomy: No Hx Breast Surgery: No Additional Surgical History: HYSTERECTOMY. BILATERAL FOOT SURGERY - Social History Smoking Status: Unknown if ever smoked Substance Use Type: Prescribed - Medications Home Medications: Home Medications Medication Instructions Recorded Confirmed Last Taken Type Norton-3 Fatty Acids [Norton-3] 1 tab PO DAILY 01/13/14 12/15/17 12/15/17 08:00 History Rosuvastatin (Nf) [Crestor] 20 mg PO DAILY 01/13/14 12/15/17 12/15/17 08:00 History Gabapentin [Neurontin] 800 mg PO TID #30 05/14/14 12/15/17 12/15/17 08:00 Rx Insulin Glargine,Hum.rec.anlog 12 unit SQ QHS 04/21/15 12/15/17 Unknown History [Lantus] Nitrofurantoin [place]/M-Cryst 100 mg PO Q12HR #10 capsule 12/29/16 12/15/17 08:00 Rx [Macrobid CAP] Fluconazole [Diflucan TAB] 150 mg PO ONCE #2 tablet 05/03/17 12/15/17 Unknown Rx Insulin Lispro [HumaLOG VIAL] 0 units SQ AC 06/03/17 12/15/17 Unknown History Nitrofurantoin [place]/M-Cryst 100 mg PO Q12HR #14 capsule 06/06/17 12/15/17 08:00 Rx [Macrobid CAP] metroNIDAZOLE [Flagyl TAB] 500 mg PO Q12HR #14 tab 06/17/17 12/15/17 12/15/17 08 :00 Rx AtorvaSTATin [Lipitor] 40 mg PO QHS #30 tablet 12/18/17 Unknown Rx Citalopram [Celexa] 20 mg PO DAILY #30 tablet 12/18/17 Unknown Rx Furosemide [Lasix TAB] 20 mg PO QDAY #30 tablet 12/18/17 Unknown Rx Gabapentin [Neurontin] 800 mg PO TID #90 capsule 12/18/17 Unknown Rx Lisinopril [Zestril TAB] 10 mg PO QDAY #30 tablet 12/18/17 Unknown Rx Lispro Insulin [Humalog] 0 unit SUB-Q ACHS units 12/18/17 Unknown Rx Sulfamethoxazole/Trimethoprim 1 each PO BID #6 tablet 12/18/17 Unknown Rx [Bactrim DS TAB] ED Physical Exam - General Limitations: Physical Limitation General appearance: alert, in no apparent distress - Head Head exam: Present: atraumatic, normocephalic - Eye Eye exam: Present: normal appearance, EOMI. Absent: nystagmus - ENT ENT exam: Present: normal exam, normal orophraynx, mucous membranes moist, normal external ear exam - Neck Neck exam: Present: normal inspection, full ROM. Absent: tenderness, meningismus - Respiratory Respiratory exam: Present: normal lung sounds bilaterally. Absent: respiratory distress - Cardiovascular Cardiovascular Exam: Present: regular rate, normal rhythm, normal heart sounds. Absent: bradycardia, tachycardia, irregular rhythm, systolic murmur, diastolic murmur, rubs, gallop - GI/Abdominal GI/Abdominal exam: Present: soft, normal bowel sounds. Absent: distended, tenderness, guarding, rebound, rigid, pulsatile mass - Extremities Exam Extremities exam: Present: normal inspection, full ROM, other (2+ pulses noted in the bilateral upper, lower extremities. Compartments soft. No long bony tenderness. The pelvis is stable.). Absent: tenderness, pedal edema, joint swelling, calf tenderness - Back Exam Back exam: Present: normal inspection, full ROM. Absent: tenderness, CVA tenderness (R), paraspinal tenderness, vertebral tenderness - Neurological Exam Neurological exam: Present: alert, oriented X3, CN II-XII intact, other ( Extraocular movements intact. Tongue midline. No facial droop. Facial sensation intact to light touch in the V1, V2, V3 distribution bilaterally. 5 and 5 strength in 4 extremities.. Sensation is intact to light touch in 4 extremities.). Absent: motor sensory deficit - Psychiatric Psychiatric exam: Present: normal affect, normal mood - Skin Skin exam: Present: warm, dry, intact, normal color. Absent: rash ED Course Vital Signs 06/12/18 06/12/18 05:39 08:10 Temperature 98.2 F Pulse Rate 64 64 Respiratory 19 18 Rate Blood Pressure 168/68 154/64 [Left] O2 Sat by Pulse 99 100 Oximetry - Reevaluation(s) Reevaluation #1: 06/12/18 07:17 Differential diagnosis, including but not limited to: Disability, chronic overactive bladder, urinary tract infection Assessment and plan: 68-year-old female with a primary complaint of being too frequently. She has appropriate strength and sensation in her lower extremities , has no midline spinal tenderness, and has documented history of overactive bladder. When this provider walks into the room to initially examine her, she is sleeping and in no distress. Her physical exam is unremarkable. Laboratory studies unremarkable. Mild thrombocytopenia appreciated and this can be followed up as an outpatient. Catheterized urine sample is pending at this time , along with a culture. Currently, there does not seem to be an emergent medical condition that would require admission to the hospital. However, given her advanced age and the fact that she lives by herself, I have requested a case management consult as well as a physical therapy consult, which can be followed up as an outpatient. The patient is alert to name, year, and location. She is clinically sober at this time, does not appear to be psychiatrically decompensated. Reevaluation #2: 06/12/18 08:08 The urinalysis is not consistent with a urinary tract infection. The patient has been observed in the emergency department for hours without clinical decompensation. There does not appear to be an emergent medical condition at this time, and the patient is medically suitable for discharge. ED Medical Decision Making - Lab Data Result diagrams: 06/12/18 05:55 06/12/18 05:55 Vital Signs 06/12/18 05:39 Temperature 98.2 F Pulse Rate 64 Respiratory 19 Rate Blood Pressure 168/68 [Left] O2 Sat by Pulse 99 Oximetry Lab Results 06/12/18 06/12/18 06/12/18 Range/Units 05:55 05:55 06:52 WBC 5.6 (4.5-11.0) K/mm3 RBC 3.75 (3.65-5.03) M/mm3 Hgb 11.8 (10.1-14.3) gm/dl Hct 35.2 (30.3-42.9) % MCV 94 (79-97) fl MCH 32 (28-32) pg MCHC 34 (30-34) % RDW 13.9 (13.2-15.2) % Plt Count 199 (140-440) K/mm3 Lymph % (Auto) 31.0 (13.4-35.0) % [place] % (Auto) 5.5 (0.0-7.3) % Eos % (Auto) 0.8 (0.0-4.3) % Baso % (Auto) 0.5 (0.0-1.8) % Lymph # 1.7 (1.2-5.4) K/mm3 [place] # 0.3 (0.0-0.8) K/mm3 Eos # 0.0 (0.0-0.4) K/mm3 Baso # 0.0 (0.0-0.1) K/mm3 Seg Neutrophils % 62.2 (40.0-70.0) % Seg Neutrophils # 3.5 (1.8-7.7) K/mm3 Sodium 144 (137-145) mmol/L Potassium 4.0 (3.6-5.0) mmol/L Chloride 108.1 H (98-107) mmol/L Carbon Dioxide 26 (22-30) mmol/L Anion Gap 14 mmol/L BUN 13 (7-17) mg/dL Creatinine 0.8 (0.7-1.2) mg/dL Estimated GFR > 60 ml/min BUN/Creatinine Ratio 16 % Glucose 109 H (65-100) mg/dL Calcium 9.1 (8.4-10.2) mg/dL Urine Bilirubin Neg (Negative) Urine RBC (Auto) 1.0 (0.0-6.0) /HPF U Epithel Cells (Auto) < 1.0 (0-13.0) /HPF Critical care attestation.: If time is entered above; I have spent that time in minutes in the direct care of this critically ill patient, excluding procedure time. ED Disposition Clinical Impression: Urinary frequency Disposition: DC-01 TO HOME OR SELFCARE Is pt being admited?: No Does the pt Need Aspirin: No Condition: Stable Instructions: Overactive Bladder (GEN) Additional Instructions: Continue current outpatient medications. Follow up with the primary care doctor or urology specialist within the next 7-10 days. Cultures were sent today, and results will be available in the next 3-5 days. Have a primary care doctor contact the medical records department to obtain culture results. Continue current outpatient medications, and return to the ER right away with ear pain, worsened pain, migration of pain, projectile vomiting , change in mental status, confusion, inability to tolerate liquid feeds. Referrals: LONNIE BOWMAN MD [Staff Physician] - 3-5 Days
[2018-06-12 07:15] LABS: Bacteria,Urine 1+ /HPF (Negative); Bilirubin,Urine NEG (Negative); Blood,Urine NEG (Negative); Color,Urine Straw (Yellow); Protein,Urine <15 mg/dL mg/dL (Negative); Urobilinogen,Urine < 2.0 mg/dL (<2.0)
[2018-06-12 12:33] VITALS: BP 157/80
== END 2018-06-12 12:33 | disposition home or self-care (01) ==
LOC: ED 05:29
DX: R35.0 Frequency of micturition (principal); I10 Essential (primary) hypertension; E11.9 Type 2 diabetes mellitus without complications; F20.0 Paranoid schizophrenia; F32.9 Major depressive disorder, single episode, unspecified; E78.00 Pure hypercholesterolemia, unspecified; Z90.49 Acquired absence of other specified parts of digestive tract; Z90.710 Acquired absence of both cervix and uterus; Z79.4 Long term (current) use of insulin; Z91.041 Radiographic dye allergy status
CPT/HCPCS: 36415; 80048; 81001; 85025; 87076; 87086; 87186

== ENCOUNTER 2018-10-19 21:10 | Emergency (ER) | payer MEDICARE ==
--- NOTE | 2018-10-19 23:14 | Emergency Department Report ---
ED Psych HPI - General Stated Complaint: MH EVAL Time Seen by Provider: 10/19/18 22:43 Source: patient Mode of arrival: Stretcher Limitations: Other - History of Present Illness Initial Comments: 68-year-old female with a past medical history depression and paranoid schizophrenia presents to the Hospital stating she needs mental health. Patient is belligerent hesitant to respond to questions. She does admit to suicidal ideation but no stated plan. She does not answer orientation questions but states she does know the year. She denies any physical complaints. She states "give me mental health help or leave me alone" and she is not forthcoming with any further information. - Related Data Home Medications Medication Instructions Recorded Confirmed Last Taken [place]-3 Fatty Acids [[place]-3] 1 tab PO DAILY 01/13/14 08/09/18 12/15/17 08:00 Rosuvastatin (Nf) [Crestor] 20 mg PO DAILY 01/13/14 08/09/18 12/15/17 08:00 Insulin Glargine,Hum.rec.anlog 12 unit SQ QHS 04/21/15 08/09/18 Unknown [Lantus] Insulin Lispro [HumaLOG VIAL] 0 units SQ AC 06/03/17 08/09/18 Unknown Previous Rx's Medication Instructions Recorded Last Taken Type Gabapentin [Neurontin] 800 mg PO TID #30 05/14/14 12/15/17 08:00 Rx Fluconazole [Diflucan TAB] 150 mg PO ONCE #2 tablet 05/03/17 Unknown Rx AtorvaSTATin [Lipitor] 40 mg PO QHS #30 tablet 12/18/17 Unknown Rx Citalopram [Celexa] 20 mg PO DAILY #30 tablet 12/18/17 Unknown Rx Furosemide [Lasix TAB] 20 mg PO QDAY #30 tablet 12/18/17 Unknown Rx Lisinopril [Zestril TAB] 10 mg PO QDAY #30 tablet 12/18/17 Unknown Rx Lispro Insulin [Humalog] 0 unit SUB-Q ACHS units 12/18/17 Unknown Rx Allergies Allergy/AdvReac Type Severity Reaction Status Date / Time Iodinated Contrast- Oral and Allergy Anaphylaxis Verified 12/15/17 13:00 IV Dye [Iodinated Contrast Media - IV Dye] ED Review of Systems ROS: Stated complaint: MH EVAL Other details as noted in HPI Comment: All other systems reviewed and negative ED Past Medical Hx - Past Medical History Hx Hypertension: Yes Hx Heart Attack/AMI: No Hx Congestive Heart Failure: No Hx Diabetes: Yes Hx Deep Vein Thrombosis: No Hx Liver Disease: No Hx Renal Disease: Yes (history of renal insufficiency) Hx Arthritis: No Hx Kidney Stones: No Hx Psychiatric Treatment: Yes (depression paranoid schizophrenia) Additional medical history: HIGH CHOLESTEROL, neuropathy, overactive bladder - Surgical History Hx Coronary Stent: No Hx Open Heart Surgery: No Hx Pacemaker: No Hx Internal Defibrillator: No Hx Cholecystectomy: Yes Hx Appendectomy: No Hx Breast Surgery: No Additional Surgical History: HYSTERECTOMY. BILATERAL FOOT SURGERY - Social History Smoking Status: Never Smoker Substance Use Type: None (denies illicit drug use) - Medications Home Medications: Home Medications Medication Instructions Recorded Confirmed Last Taken Type [place]-3 Fatty Acids [[place]-3] 1 tab PO DAILY 01/13/14 08/09/18 12/15/17 08:00 History Rosuvastatin (Nf) [Crestor] 20 mg PO DAILY 01/13/14 08/09/18 12/15/17 08:00 History Gabapentin [Neurontin] 800 mg PO TID #30 05/14/14 08/09/18 12/15/17 08:00 Rx Insulin Glargine,Hum.rec.anlog 12 unit SQ QHS 04/21/15 08/09/18 Unknown History [Lantus] Fluconazole [Diflucan TAB] 150 mg PO ONCE #2 tablet 05/03/17 08/09/18 Unknown Rx Insulin Lispro [HumaLOG VIAL] 0 units SQ AC 06/03/17 08/09/18 Unknown History AtorvaSTATin [Lipitor] 40 mg PO QHS #30 tablet 12/18/17 08/09/18 Unknown Rx Citalopram [Celexa] 20 mg PO DAILY #30 tablet 12/18/17 08/09/18 Unknown Rx Furosemide [Lasix TAB] 20 mg PO QDAY #30 tablet 12/18/17 08/09/18 Unknown Rx Lisinopril [Zestril TAB] 10 mg PO QDAY #30 tablet 12/18/17 08/09/18 Unknown Rx Lispro Insulin [Humalog] 0 unit SUB-Q ACHS units 12/18/17 08/09/18 Unknown Rx ED Physical Exam - Other Other exam information: General: No limitations, patient is alert in no acute distress Head exam: Atraumatic, normocephalic Eyes exam: Normal appearance ENT: Dry mucous membranes Neck exam: Normal inspection, full range of motion Respiratory exam: Clear to auscultation bilateral, no wheezes, rales, crackles Cardiovascular: Normal rate and rhythm, normal heart sounds Abdomen: Soft, nondistended, and nontender, with normal bowel sounds, no rebound, or guarding Extremity: Full range of motion normal inspection no deformity Back: Normal Inspection, full range of motion, no tenderness Neurologic: Alert, oriented x1 (pt refuses to answer orientation questions stating "I'm not crazy"), cranial nerves intact, no motor or sensory deficit Psychiatric: Angry/belligerent but non combative ED Course Vital Signs 10/19/18 23:32 Temperature 98.4 F Pulse Rate 86 Blood Pressure 135/71 O2 Sat by Pulse 99 Oximetry ED Medical Decision Making - Lab Data Result diagrams: 10/19/18 23:47 10/19/18 23:47 Lab Results 10/19/18 10/19/18 10/19/18 Range/Units 23:47 23:47 23:47 WBC 7.5 (4.5-11.0) K/mm3 RBC 4.09 (3.65-5.03) M/mm3 Hgb 12.6 (10.1-14.3) gm/dl Hct 38.1 (30.3-42.9) % MCV 93 (79-97) fl MCH 31 (28-32) pg MCHC 33 (30-34) % RDW 14.6 (13.2-15.2) % Plt Count 128 L (140-440) K/mm3 Lymph % (Auto) 38.7 H (13.4-35.0) % [place] % (Auto) 5.4 (0.0-7.3) % Eos % (Auto) 1.1 (0.0-4.3) % Baso % (Auto) 0.8 (0.0-1.8) % Lymph # 2.9 (1.2-5.4) K/mm3 [place] # 0.4 (0.0-0.8) K/mm3 Eos # 0.1 (0.0-0.4) K/mm3 Baso # 0.1 (0.0-0.1) K/mm3 Seg Neutrophils % 54.0 (40.0-70.0) % Seg Neutrophils # 4.1 (1.8-7.7) K/mm3 Sodium 143 (137-145) mmol/L Potassium 3.7 (3.6-5.0) mmol/L Chloride 103.4 (98-107) mmol/L Carbon Dioxide 24 (22-30) mmol/L Anion Gap 19 mmol/L BUN 29 H (7-17) mg/dL Creatinine 1.2 (0.7-1.2) mg/dL Estimated GFR 54 ml/min BUN/Creatinine Ratio 24 % Glucose 121 H (65-100) mg/dL Calcium 9.6 (8.4-10.2) mg/dL Urine Color (Yellow) Urine Turbidity (Clear) Urine pH (5.0-7.0) Ur Specific [place] (1.003-1.030) Urine Protein (Negative) mg/dL Urine Glucose (UA) (Negative) mg/dL Urine Ketones (Negative) mg/dL Urine Blood (Negative) Urine Nitrite (Negative) Urine Bilirubin (Negative) Urine Urobilinogen (<2.0) mg/dL Ur Leukocyte Esterase (Negative) Urine WBC (Auto) (0.0-6.0) /HPF Urine RBC (Auto) (0.0-6.0) /HPF U Epithel Cells (Auto) (0-13.0) /HPF Urine Bacteria (Auto) (Negative) /HPF Hyaline Casts /LPF Urine Mucus /HPF Salicylates < 0.3 L (2.8-20.0) mg/dL Urine Opiates Screen Urine Methadone Screen Acetaminophen (10.0-30.0) ug/mL Ur Barbiturates Screen Ur Phencyclidine Scrn Ur Amphetamines Screen U Benzodiazepines Scrn Urine Cocaine Screen U Marijuana (THC) Screen Drugs of Abuse Note Plasma/Serum Alcohol (0-0.07) % 10/19/18 10/19/18 10/20/18 Range/Units 23:47 23:47 00:07 WBC (4.5-11.0) K/mm3 RBC (3.65-5.03) M/mm3 Hgb (10.1-14.3) gm/dl Hct (30.3-42.9) % MCV (79-97) fl MCH (28-32) pg MCHC (30-34) % RDW (13.2-15.2) % Plt Count (140-440) K/mm3 Lymph % (Auto) (13.4-35.0) % [place] % (Auto) (0.0-7.3) % Eos % (Auto) (0.0-4.3) % Baso % (Auto) (0.0-1.8) % Lymph # (1.2-5.4) K/mm3 [place] # (0.0-0.8) K/mm3 Eos # (0.0-0.4) K/mm3 Baso # (0.0-0.1) K/mm3 Seg Neutrophils % (40.0-70.0) % Seg Neutrophils # (1.8-7.7) K/mm3 Sodium (137-145) mmol/L Potassium (3.6-5.0) mmol/L Chloride (98-107) mmol/L Carbon Dioxide (22-30) mmol/L Anion Gap mmol/L BUN (7-17) mg/dL Creatinine (0.7-1.2) mg/dL Estimated GFR ml/min BUN/Creatinine Ratio % Glucose (65-100) mg/dL Calcium (8.4-10.2) mg/dL Urine Color Yellow (Yellow) Urine Turbidity Clear (Clear) Urine pH 6.0 (5.0-7.0) Ur Specific [place] 1.020 (1.003-1.030) Urine Protein <15 mg/dl (Negative) mg/dL Urine Glucose (UA) Neg (Negative) mg/dL Urine Ketones Tr (Negative) mg/dL Urine Blood Mod (Negative) Urine Nitrite Pos (Negative) Urine Bilirubin Neg (Negative) Urine Urobilinogen 2.0 (<2.0) mg/dL Ur Leukocyte Esterase Sm (Negative) Urine WBC (Auto) 30.0 H (0.0-6.0) /HPF Urine RBC (Auto) 23.0 (0.0-6.0) /HPF U Epithel Cells (Auto) < 1.0 (0-13.0) /HPF Urine Bacteria (Auto) 4+ (Negative) /HPF Hyaline Casts 24 /LPF Urine Mucus Few /HPF Salicylates (2.8-20.0) mg/dL Urine Opiates Screen Urine Methadone Screen Acetaminophen < 5.0 L (10.0-30.0) ug/mL Ur Barbiturates Screen Ur Phencyclidine Scrn Ur Amphetamines Screen U Benzodiazepines Scrn Urine Cocaine Screen U Marijuana (THC) Screen Drugs of Abuse Note Plasma/Serum Alcohol < 0.01 (0-0.07) % 10/20/18 Range/Units 00:07 WBC (4.5-11.0) K/mm3 RBC (3.65-5.03) M/mm3 Hgb (10.1-14.3) gm/dl Hct (30.3-42.9) % MCV (79-97) fl MCH (28-32) pg MCHC (30-34) % RDW (13.2-15.2) % Plt Count (140-440) K/mm3 Lymph % (Auto) (13.4-35.0) % [place] % (Auto) (0.0-7.3) % Eos % (Auto) (0.0-4.3) % Baso % (Auto) (0.0-1.8) % Lymph # (1.2-5.4) K/mm3 [place] # (0.0-0.8) K/mm3 Eos # (0.0-0.4) K/mm3 Baso # (0.0-0.1) K/mm3 Seg Neutrophils % (40.0-70.0) % Seg Neutrophils # (1.8-7.7) K/mm3 Sodium (137-145) mmol/L Potassium (3.6-5.0) mmol/L Chloride (98-107) mmol/L Carbon Dioxide (22-30) mmol/L Anion Gap mmol/L BUN (7-17) mg/dL Creatinine (0.7-1.2) mg/dL Estimated GFR ml/min BUN/Creatinine Ratio % Glucose (65-100) mg/dL Calcium (8.4-10.2) mg/dL Urine Color (Yellow) Urine Turbidity (Clear) Urine pH (5.0-7.0) Ur Specific [place] (1.003-1.030) Urine Protein (Negative) mg/dL Urine Glucose (UA) (Negative) mg/dL Urine Ketones (Negative) mg/dL Urine Blood (Negative) Urine Nitrite (Negative) Urine Bilirubin (Negative) Urine Urobilinogen (<2.0) mg/dL Ur Leukocyte Esterase (Negative) Urine WBC (Auto) (0.0-6.0) /HPF Urine RBC (Auto) (0.0-6.0) /HPF U Epithel Cells (Auto) (0-13.0) /HPF Urine Bacteria (Auto) (Negative) /HPF Hyaline Casts /LPF Urine Mucus /HPF Salicylates (2.8-20.0) mg/dL Urine Opiates Screen Presumptive negative Urine Methadone Screen Presumptive negative Acetaminophen (10.0-30.0) ug/mL Ur Barbiturates Screen Presumptive negative Ur Phencyclidine Scrn Presumptive negative Ur Amphetamines Screen Presumptive negative U Benzodiazepines Scrn Presumptive negative Urine Cocaine Screen Presumptive negative U Marijuana (THC) Screen Presumptive negative Drugs of Abuse Note Disclamer Plasma/Serum Alcohol (0-0.07) % - Medical Decision Making Urine reveals UTI. Macrobid initiated. Patient is medically clear for psychiatric transfer. 1013 and transfer forms signed - Differential Diagnosis suicidal, homicidal, psychosis, depression Critical Care Time: No Critical care attestation.: If time is entered above; I have spent that time in minutes in the direct care of this critically ill patient, excluding procedure time. ED Disposition Clinical Impression: Paranoid schizophrenia, MDD (major depressive disorder), recurrent episode, Suicidal ideation, Dementia, UTI (urinary tract infection), Medical clearance for psychiatric admission Disposition: DC/TX-65 PSY HOSP/PSY UNIT Is pt being admited?: No Condition: Stable Time of Disposition: 02:43
[2018-10-20 00:02] LABS: Basophils # (Auto) 0.1 K/mm3 (0.0-0.1); Basophils % (Auto) 0.8 % (0.0-1.8); Eosinophils # (Auto) 0.1 K/mm3 (0.0-0.4); Eosinophils % (Auto) 1.1 % (0.0-4.3); Hematocrit 38.1 % (30.3-42.9); Hemoglobin 12.6 gm/dl (10.1-14.3); Lymphocytes # (Auto) 2.9 K/mm3 (1.2-5.4); Lymphocytes % (Auto) 38.7 % (13.4-35.0); Mean Corpuscular HGB Conc 33 % (30-34); Mean Corpuscular Volume 93 fl (79-97); Monocytes # (Auto) 0.4 K/mm3 (0.0-0.8); Monocytes % (Auto) 5.4 % (0.0-7.3); Red Blood Count 4.09 M/mm3 (3.65-5.03); Red Cell Distribution Width 14.6 % (13.2-15.2)
[2018-10-20 00:12] LABS: Platelet Count 128 K/mm3 (140-440)
[2018-10-20 00:50] LABS: Bacteria,Urine 4+ /HPF (Negative); Bilirubin,Urine NEG (Negative); Blood,Urine MOD (Negative); Color,Urine Yellow (Yellow); Hyaline Casts,Urine 24 /LPF; Mucus,Urine FEW /HPF; Protein,Urine <15 mg/dL mg/dL (Negative)
[2018-10-20 00:54] LABS: Amphetamine Screen,Urine PRESUMPTIVE NEGATIVE; Benzodiazepines Screen,Urine PRESUMPTIVE NEGATIVE; Cannabinoid Screen,Urine PRESUMPTIVE NEGATIVE; Cocaine Screen,Urine PRESUMPTIVE NEGATIVE; Methadone Screen,Urine PRESUMPTIVE NEGATIVE; Opiate Screen,Urine PRESUMPTIVE NEGATIVE
[2018-10-20 01:03] LABS: Calcium 9.6 mg/dL (8.4-10.2)
[2018-10-20] MEDS ORDERED: MACROBID PO ONE (01:46)
[2018-10-20] MEDS ORDERED: MACROBID PO SCH (10:00)
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
[2018-10-20 14:01] VITALS: BP 148/66
== END 2018-10-20 18:43 ==
LOC: EEVIPCON 21:10 → ED 21:10
DX: F32.9 Major depressive disorder, single episode, unspecified (principal); F20.0 Paranoid schizophrenia; F03.90 Unspecified dementia, unspecified severity, without behavioral disturbance, psychotic disturbance, mood disturbance, and anxiety; N39.0 Urinary tract infection, site not specified; I10 Essential (primary) hypertension; E78.00 Pure hypercholesterolemia, unspecified; E11.40 Type 2 diabetes mellitus with diabetic neuropathy, unspecified; Z79.4 Long term (current) use of insulin; Z91.041 Radiographic dye allergy status
CPT/HCPCS: 36415; 80048; 80307; 81001; 82962; 85025; 99285; G0480; 80320

== ENCOUNTER 2018-10-20 19:25 | Emergency (ER) | payer MEDICARE ==
--- NOTE | 2018-10-20 20:05 | Emergency Department Report ---
ED Psych HPI - General Chief Complaint: Psych Stated Complaint: MH EVAL Time Seen by Provider: 10/20/18 19:53 Source: EMS Mode of arrival: Ambulatory - History of Present Illness Initial Comments: Patient is 68 years old female history of paranoid schizophrenia. Patient was seen here and evaluated by mental health. Patient was accepted to be admitted to [facility] and when patient arrived over there they did not have any available beds. [facility] facility stated that bed will be available in the morning. Patient sent back to the emergency room until they have bed available. No change in patient clinical status. MD Complaint: altered mental status - Related Data Home Medications Medication Instructions Recorded Confirmed Last Taken [place]-3 Fatty Acids [[place]-3] 1 tab PO DAILY 01/13/14 10/20/18 10/18/18 09:00 Rosuvastatin (Nf) [Crestor] 20 mg PO DAILY 01/13/14 10/20/18 10/18/18 09:00 Insulin Glargine,Hum.rec.anlog 12 unit SQ QHS 04/21/15 10/20/18 10/17/18 21:00 [Lantus] Insulin Lispro [HumaLOG VIAL] 0 units SQ AC 06/03/17 10/20/18 10/18/18 07:30 Tizanidine HCl [tiZANidine] 2 mg PO HS 10/20/18 10/20/18 10/18/18 09:00 Previous Rx's Medication Instructions Recorded Last Taken Type Gabapentin [Neurontin] 800 mg PO TID #30 05/14/14 10/18/18 09:00 Rx Fluconazole [Diflucan TAB] 150 mg PO ONCE #2 tablet 05/03/17 10/18/18 09:00 Rx AtorvaSTATin [Lipitor] 40 mg PO QHS #30 tablet 12/18/17 10/17/18 09:00 Rx Citalopram [Celexa] 20 mg PO DAILY #30 tablet 12/18/17 10/18/18 09:00 Rx Furosemide [Lasix TAB] 20 mg PO QDAY #30 tablet 12/18/17 10/18/18 09:00 Rx Lisinopril [Zestril TAB] 10 mg PO QDAY #30 tablet 12/18/17 10/18/18 09:00 Rx Lispro Insulin [Humalog] 0 unit SUB-Q ACHS units 12/18/17 10/18/18 07:30 Rx Allergies Allergy/AdvReac Type Severity Reaction Status Date / Time Iodinated Contrast- Oral and Allergy Anaphylaxis Verified 12/15/17 13:00 IV Dye [Iodinated Contrast Media - IV Dye] ED Review of Systems ROS: Stated complaint: MH EVAL Other details as noted in HPI Comment: All other systems reviewed and negative Respiratory: denies: cough Cardiovascular: denies: chest pain, palpitations Gastrointestinal: denies: abdominal pain ED Past Medical Hx - Past Medical History Hx Hypertension: Yes Hx Heart Attack/AMI: No Hx Congestive Heart Failure: No Hx Diabetes: Yes Hx Deep Vein Thrombosis: No Hx Liver Disease: No Hx Renal Disease: Yes (history of renal insufficiency) Hx Arthritis: No Hx Kidney Stones: No Hx Psychiatric Treatment: Yes (depression paranoid schizophrenia) Additional medical history: HIGH CHOLESTEROL, neuropathy, overactive bladder - Surgical History Hx Coronary Stent: No Hx Open Heart Surgery: No Hx Pacemaker: No Hx Internal Defibrillator: No Hx Cholecystectomy: Yes Hx Appendectomy: No Hx Breast Surgery: No Additional Surgical History: HYSTERECTOMY. BILATERAL FOOT SURGERY - Social History Smoking Status: Never Smoker Substance Use Type: None (denies illicit drug use) - Medications Home Medications: Home Medications Medication Instructions Recorded Confirmed Last Taken Type [place]-3 Fatty Acids [[place]-3] 1 tab PO DAILY 01/13/14 10/20/18 10/18/18 09:00 History Rosuvastatin (Nf) [Crestor] 20 mg PO DAILY 01/13/14 10/20/18 10/18/18 09:00 History Gabapentin [Neurontin] 800 mg PO TID #30 05/14/14 10/20/18 10/18/18 09:00 Rx Insulin Glargine,Hum.rec.anlog 12 unit SQ QHS 04/21/15 10/20/18 10/17/18 21:00 History [Lantus] Fluconazole [Diflucan TAB] 150 mg PO ONCE #2 tablet 05/03/17 10/20/18 10/18/18 09:00 Rx Insulin Lispro [HumaLOG VIAL] 0 units SQ AC 06/03/17 10/20/18 10/18/18 07:30 History AtorvaSTATin [Lipitor] 40 mg PO QHS #30 tablet 12/18/17 10/20/18 10/17/18 09:00 Rx Citalopram [Celexa] 20 mg PO DAILY #30 tablet 12/18/17 10/20/18 10/18/18 09:00 Rx Furosemide [Lasix TAB] 20 mg PO QDAY #30 tablet 12/18/17 10/20/18 10/18/18 09:00 Rx Lisinopril [Zestril TAB] 10 mg PO QDAY #30 tablet 12/18/17 10/20/18 10/18/18 09:00 Rx Lispro Insulin [Humalog] 0 unit SUB-Q ACHS units 12/18/17 10/20/18 10/18/18 07:30 Rx Tizanidine HCl [tiZANidine] 2 mg PO HS 10/20/18 10/20/18 10/18/18 09:00 History ED Physical Exam - General Limitations: No Limitations General appearance: alert, in no apparent distress - Head Head exam: Present: atraumatic, normocephalic, normal inspection - Eye Eye exam: Present: normal appearance, PERRL - Neck Neck exam: Present: normal inspection, full ROM. Absent: tenderness, meningismus, lymphadenopathy, thyromegaly - Respiratory Respiratory exam: Present: normal lung sounds bilaterally - Cardiovascular Cardiovascular Exam: Present: regular rate, normal rhythm, normal heart sounds - GI/Abdominal GI/Abdominal exam: Present: soft, normal bowel sounds. Absent: distended, tenderness, guarding, rebound, rigid - Extremities Exam Extremities exam: Present: normal inspection, full ROM, normal capillary refill - Back Exam Back exam: Present: normal inspection, full ROM - Neurological Exam Neurological exam: Present: alert, oriented X3, CN II-XII intact - Psychiatric Psychiatric exam: Present: normal mood, agitated, anxious. Absent: homicidal ideation, suicidal ideation - Skin Skin exam: Present: warm, intact, normal color ED Course Vital Signs 10/20/18 19:44 Temperature 99.4 F Pulse Rate 62 Respiratory 18 Rate Blood Pressure 149/71 Blood Pressure 149/71 [Left] O2 Sat by Pulse 100 Oximetry Critical care attestation.: If time is entered above; I have spent that time in minutes in the direct care of this critically ill patient, excluding procedure time. ED Disposition Clinical Impression: Acute psychosis, Paranoid schizophrenia Disposition: DC/TX-65 PSY HOSP/PSY UNIT Is pt being admited?: No Condition: Stable Referrals: JOHN AGRAWAL MD [Primary Care Provider] - 3-5 Days
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
[2018-10-21] MEDS ORDERED: celeXA PO SCH (13:00)
[2018-10-21 16:15] VITALS: BP 107/85
== END 2018-10-21 16:00 ==
LOC: ED 19:25 → EEVIPCON 19:25 → ED 10-21 16:00
DX: F20.0 Paranoid schizophrenia (principal); I10 Essential (primary) hypertension; E11.9 Type 2 diabetes mellitus without complications; E78.00 Pure hypercholesterolemia, unspecified; Z90.710 Acquired absence of both cervix and uterus; Z91.041 Radiographic dye allergy status